=== PATIENT | male | born 1940 | race Caucasian/White ===

== ENCOUNTER 2017-03-21 22:37 | Emergency (ER) | payer OTHER ==
[2017-03-21 22:47] VITALS: BMI 30.7
--- NOTE | 2017-03-21 22:54 | PDOC ---
History of Present Illness - History of Present Illness Initial Comments: 03/22/17 00:05 Patient is a 76 year old male with significant medical hx of HTN and RA who is presenting to the ED with two weeks of persistent headache and irritability after head trauma. The patient fell out of bed and hit his head on the corner of a table on 02/23/17, sustaining a laceration to his forehead. The patient denies losing consciousness and did not see a physician for evaluation after the fall. Per family member, the patient has had persistent headache and irritability for the past two weeks. Patient localizes his headache to the front of his head where he sustained the trauma. Today the patient received an MRI, which revealed a subdural hematoma (see impression below), and was sent to the ED by PMD. Denies nausea, vomiting, abdominal pain, lightheadedness, dizziness, blurry vision, visual changes, or loss of consciousness. PMD: Barb Lopez MD Surgical Hx: Tonsillectomy Allergies: Penicillin, tetracyclines MRI/Brain MRI W/O Contrast Impression: A moderate supratentorial right-sided convexity subdural hematoma is seen with resultant mild contralateral midline displacement. This subdural hematoma is probably late subacute. Reported By: Shankar Jacob MD <Hortencia Snow - Last Filed: 03/22/17 00:05> <Angelica Salcedo - Last Filed: 03/23/17 01:38> - General Chief Complaint: Revisit,Radiology Variance Stated Complaint: REF. BY PCP Time Seen by Provider: 03/21/17 22:49 Past History <Hortencia Snow - Last Filed: 03/22/17 00:05> - Past Medical History HTN: Yes Other medical history: rheumatoid arthritis - Psycho/Social/Smoking Cessation Hx Suicidal Ideation: No Smoking History: Former smoker Have you smoked in the past 12 months: No If you are a former smoker, when did you quit?: 30 years ago Information on smoking cessation initiated: No <Angelica Salcedo - Last Filed: 03/23/17 01:38> - Past Medical History Allergies/Adverse Reactions: Allergies Allergy/AdvReac Type Severity Reaction Status Date / Time Penicillins Allergy Verified 03/21/17 22:44 Tetracyclines Allergy Verified 03/21/17 22:44 Home Medications: Ambulatory Orders Atenolol [Tenormin -] 50 mg PO DAILY 03/21/17 Felodipine [Felodipine ER] 10 mg PO DAILY 03/21/17 Folic Acid 1 mg PO DAILY 03/21/17 Losartan Potassium 100 mg PO BID 03/21/17 Review of Systems - Review of Systems Comments:: 03/22/17 00:11 CONSTITUTIONAL: Absent: fever, chills, diaphoresis, generalized weakness, malaise, loss of appetite HEENT: Absent: rhinorrhea, nasal congestion, throat pain, throat swelling, difficulty swallowing, mouth swelling, ear pain, eye pain, visual changes CARDIOVASCULAR: Absent: chest pain, syncope, palpitations, irregular heart rate, lightheadedness , peripheral edema RESPIRATORY: Absent: cough, shortness of breath, dyspnea with exertion, orthopnea, wheezing, stridor, hemoptysis GASTROINTESTINAL: Absent: abdominal pain, abdominal distension, nausea, vomiting, diarrhea, constipation, melena, hematochezia GENITOURINARY: Absent: dysuria, frequency, urgency, hesitancy, hematuria, flank pain, genital pain MUSCULOSKELETAL: Absent: myalgia, arthralgia, joint swelling SKIN: Absent: rash, itching, pallor HEMATOLOGIC/IMMUNOLOGIC: Absent: easy bleeding, easy bruising, lymphadenopathy, frequent infections ENDOCRINE: Absent: unexplained weight gain, unexplained weight loss, heat intolerance, cold intolerance NEUROLOGIC: Present: headache Absent: focal weakness or paresthesia, dizziness, unsteady gait, seizure, mental status changes, bladder or bowel incontinence. PSYCHIATRIC: Present: irritability Absent: anxiety, depression, suicidal or homicidal ideation, hallucinations <Edy,Hortencia - Last Filed: 03/22/17 00:05> *Physical Exam - Vital Signs Last Vital Signs Temp Pulse Resp BP Pulse Ox 97.1 F L 66 19 144/92 100 03/21/17 23:15 03/21/17 23:15 03/21/17 23:15 03/21/17 23:15 03/21/17 23:15 - Physical Exam Comments: 03/22/17 00:13 GENERAL: Well developed, well nourished. Awake and alert. No acute distress. HEENT: Normocephalic, atraumatic. Vision intact. PERRLA, EOMI. No conjunctival pallor. Sclera are non-icteric. Moist mucous membranes. Oropharynx is clear. NECK: Supple. Full ROM. No JVD. Carotid pulses 2+ and symmetric, without bruits. No thyromegaly. No lymphadenopathy. CARDIOVASCULAR: Regular rate and rhythm. No murmurs, rubs, or gallops. Distal pulses are 2+ and symmetric. PULMONARY: No evidence of respiratory distress. Lungs clear to auscultation bilaterally. No wheezing, rales or rhonchi. ABDOMINAL: Soft. Non-tender. Non-distended. No rebound or guarding. No organomegaly. Normoactive bowel sounds. MUSCULOSKELETAL: Normal range of motion at all joints. No bony deformities or tenderness. No CVA tenderness. EXTREMITIES: No cyanosis. No clubbing. No edema. No calf tenderness. SKIN: Warm and dry. Normal capillary refill. No rashes. No jaundice. NEUROLOGICAL: Alert, awake, appropriate. Cranial nerves 2-12 intact. Normal speech. No gross focal neurological deficits. Ambulatory. Moving all extremities. PSYCHIATRIC: Cooperative. Good eye contact. Appropriate mood and affect. <Hortencia Snow - Last Filed: 03/22/17 00:05> - Vital Signs Last Vital Signs Temp Pulse Resp BP Pulse Ox 99.9 F H 66 20 177/74 98 03/21/17 22:44 03/21/17 22:44 03/21/17 22:44 03/21/17 22:44 03/21/17 22:44 <Angelica Salcedo - Last Filed: 03/23/17 01:38> ED Treatment Course - LABORATORY CBC & Chemistry Diagram: 03/21/17 23:55 03/21/17 23:56 <Angelica Salcedo - Last Filed: 03/23/17 01:38> Medical Decision Making - Medical Decision Making 03/23/17 01:36 This 76-year-old male was sent in a 76-year-old male infant because he had a brain MRI that showed he had a subdural hematoma,subacute that showed some midline shift. The patient had actually fallen several weeks before and had not sought medical attention. The following 2 weeks He had persistent frontal headaches and his family noticed personality change with him doing quite irritable NIH stroke scale was essentially 0 at this time. I spoke to the neurosurgeon, Dr. Lor Mendoza recommended transfer to [facility]. The family wanted to go to [facility] and I spoke with Dr. Geiger who accepted the case. <Angelica Salcedo - Last Filed: 03/23/17 01:38> *DC/Admit/Observation/Transfer - Attestations Scribe Attestion: 03/22/17 00:14 Documentation prepared by Hortencia Snow, acting as medical donation professional for Angelica Salcedo MD. <Hortencia Snow - Last Filed: 03/22/17 00:05> - Transfer to Acute Care Facility Receiving Facility: [facility]. Accepting Physician:: DR HAMM Transfer comment: 03/23/17 01:35 neurosurgery admission <Angelica Salcedo - Last Filed: 03/23/17 01:38> Diagnosis at time of Disposition: Non-traumatic subdural hematoma - Discharge Dispostion Disposition: TRANSFER ACUTE CARE/OTHER HOSP - Referrals Referrals: Barb Lopez MD [Primary Care Provider] -
[2017-03-22 00:22] LABS: BASOPHIL 0.5 % (0-2.0); EOSINOPHIL 3.1 % (0-4.5); MCH 31.9 pg (25.7-33.7); MCHC 33.3 g/dl (32.0-35.9); MEAN CELL VOLUME 95.8 fl (80-96); MEAN PLT VOLUME 8.4 fl (7.5-11.1); NEUTROPHILS 69.4 % (42.8-82.8); PLATELET COUNT 293 K/MM3 (134-434); RDW 13.9 % (11.9-15.9); WHITE BLOOD COUNT 9.4 K/mm3 (4.0-10.0)
[2017-03-22 00:44] LABS: INR 1.07 (0.82-1.09); PROTHROMBIN TIME (PATIENT) 11.8 SEC (9.98-11.88)
[2017-03-22 01:32] LABS: ALBUMIN 3.1 g/dl (3.4-5.0); BILIRUBIN,TOTAL 0.2 mg/dL (0.2-1.0); CALCIUM 8.4 mg/dL (8.5-10.1); COCKROFT - GAULT 50.93; CREATININE 1.6 mg/dL (0.7-1.3); TOT PROT 6.7 g/dl (6.4-8.2)
[2017-03-22 01:41] VITALS: BP 155/79; PULSE 67; TEMP 97.7
--- NOTE | 2017-03-22 22:55 | EKG ---
Test Reason : Blood Pressure : / mmHG Vent. Rate : 069 BPM Atrial Rate : 069 BPM P-R Int : 168 ms QRS Dur : 088 ms QT Int : 398 ms P-R-T Axes : 076 -13 056 degrees QTc Int : 426 ms NORMAL SINUS RHYTHM NORMAL ECG NO PREVIOUS ECGS AVAILABLE Confirmed by HERMINIO DUKES MD ([id number]) on 03/22/2017 10:55:40 PM Referred By: Confirmed By:HERMINIO DUKES MD
== END 2017-03-22 01:42 | disposition short-term general hospital (02) ==
LOC: JER 22:37
DX: I62.00 Nontraumatic subdural hemorrhage, unspecified (principal)
CPT/HCPCS: 36415; 80053; 85025; 85610; 93005; 93010; 99285-25

== ENCOUNTER 2021-08-04 11:17 | Inpatient (IN) | payer OTHER ==
[2021-08-04 11:23] VITALS: BMI 28.1
[2021-08-04 12:48] LABS: BASO % 0.6 % (0-2.0); EOS % 2.6 % (0-4.5); HEMATOCRIT 37.9 % (35.4-49); HEMOGLOBIN 12.9 GM/dL (11.7-16.9); MCH 32.5 pg (25.7-33.7); MCHC 34.1 g/dl (32.0-35.9); MEAN CELL VOLUME 95.3 fl (80-96); MEAN PLT VOLUME 8.5 fl (7.5-11.1); MONO % 10.9 % (3.8-10.2); NEUT % 73.9 % (42.8-82.8); PLATELET COUNT 198 10^3/uL (134-434); RBC 3.98 M/mm3 (4.00-5.60); RDW 13.8 % (11.9-15.9); WHITE BLOOD COUNT 5.5 K/mm3 (4.0-10.0)
[2021-08-04 12:58] LABS: INR 0.97 (0.83-1.09)
[2021-08-04 13:04] LABS: CHLORIDE 106 mmol/L (98-107); SODIUM 137 mmol/L (136-145)
[2021-08-04 13:08] LABS: ANION GAP 5 MMOL/L (8-16); CALCIUM 8.9 mg/dL (8.5-10.1); CO2 26 mmol/L (21-32)
[2021-08-04 13:09] LABS: ALBUMIN 3.5 g/dl (3.4-5.0); BLOOD UREA NITROGEN 34.5 mg/dL (7-18); GLUCOSE,RANDOM 106 mg/dL (74-106)
[2021-08-04 13:11] LABS: SGOT/AST 24 U/L (15-37); SGPT/ALT 31 U/L (13-61)
[2021-08-04 13:12] LABS: CHOLESTEROL 180 mg/dL (50-200); CREATININE 1.8 mg/dL (0.55-1.3); TRIGLYCERIDES 91 mg/dL (0-150)
[2021-08-04 13:13] LABS: BILIRUBIN,TOTAL 0.4 mg/dL (0.2-1); LDL CHOLESTEROL (ONLY SJRH) 99 mg/dL (5-100); TOT PROT 7.4 g/dl (6.4-8.2)
[2021-08-04 13:14] LABS: ALK PHOS 90 U/L (45-117); HDL CHOLESTEROL 58 mg/dL (40-60)
[2021-08-04 13:14] LABS: EPI CELLS 0 /uL (0-25.1); HYALINE CASTS 0 /uL (0-3.1); URINE APPEARANCE CLEAR; URINE BACTERIA 17 /uL (0-1359); URINE BILIRUBIN NEGATIVE (NEGATIVE); URINE COLOR YELLOW; URINE GLUCOSE (UA) NEGATIVE (NEGATIVE); URINE KETONE NEGATIVE (NEGATIVE); URINE LEUK ESTERASE NEGATIVE (NEGATIVE); URINE NITRITE NEGATIVE (NEGATIVE); URINE PROTEIN 1+ (NEGATIVE); URINE RBC 21 /uL (0-23.9); URINE UROBILINOGEN 0.2 mg/dL (0.2-1.0); URINE WBC 2 /uL (0-25.8)
[2021-08-04] MEDS: SODIUM CHLORIDE 1,000 ML IV SCH (13:40)
[2021-08-04] MEDS ORDERED: ALBUTEROL SO4 HFA INHALER IH PRN (17:58)
[2021-08-04] MEDS ORDERED: LOSARTAN POTASSIUM 50 MG TABLET ONE (18:39)
[2021-08-04] MEDS ORDERED: ASPIRIN COATED 81 MG TABLET.EC ONE (18:39)
[2021-08-04] MEDS ORDERED: amLODIPine BESYLATE 5 MG TABLET (FP) ONE (18:39)
[2021-08-04] MEDS: ASPIRIN COATED 81 MG TABLET.EC PO SCH (18:46)
[2021-08-04] MEDS: amLODIPine BESYLATE 10 MG TABLET (FP) PO SCH (18:46)
[2021-08-04] MEDS: LOSARTAN POTASSIUM 50 MG TABLET PO SCH (18:46)
[2021-08-04] MEDS: TAMSULOSIN HCL 0.4 MG CAP PO SCH (19:08)
[2021-08-04] MEDS: ATENOLOL 50 MG TABLET (FP) PO SCH (21:55)
[2021-08-04] MEDS: MONTELUKAST NA 10 MG TABLET PO SCH (22:02)
[2021-08-05] MEDS ORDERED: TAMSULOSIN HCL 0.4 MG CAP ONE (07:53)
[2021-08-05] MEDS: TAMSULOSIN HCL 0.4 MG CAP PO SCH (07:59)
[2021-08-05 08:22] LABS: BASO % 0.8 % (0-2.0); EOS % 3.8 % (0-4.5); HEMATOCRIT 38.3 % (35.4-49); HEMOGLOBIN 12.9 GM/dL (11.7-16.9); LYMPH % 20.8 % (8-40); MCH 32.2 pg (25.7-33.7); MCHC 33.7 g/dl (32.0-35.9); MEAN CELL VOLUME 95.7 fl (80-96); MONO % 13.9 % (3.8-10.2); NEUT % 60.7 % (42.8-82.8); PLATELET COUNT 195 10^3/uL (134-434); WHITE BLOOD COUNT 5.2 K/mm3 (4.0-10.0)
[2021-08-05 08:29] LABS: BLOOD UREA NITROGEN 32.6 mg/dL (7-18); CALCIUM 8.5 mg/dL (8.5-10.1)
[2021-08-05 08:32] LABS: CREATININE 1.4 mg/dL (0.55-1.3)
[2021-08-05] MEDS ORDERED: LOSARTAN POTASSIUM 50 MG TABLET ONE (09:42)
[2021-08-05] MEDS ORDERED: ATENOLOL 25 MG TABLET (FP) ONE (09:42)
[2021-08-05] MEDS ORDERED: ASPIRIN COATED 81 MG TABLET.EC ONE (09:42)
[2021-08-05] MEDS ORDERED: amLODIPine BESYLATE 5 MG TABLET (FP) ONE (09:42)
[2021-08-05] MEDS: amLODIPine BESYLATE 10 MG TABLET (FP) PO SCH (10:04)
[2021-08-05] MEDS: ASPIRIN COATED 81 MG TABLET.EC PO SCH (10:04)
[2021-08-05] MEDS: LOSARTAN POTASSIUM 50 MG TABLET PO SCH (10:04)
[2021-08-05] MEDS: ATENOLOL 50 MG TABLET (FP) PO SCH ×3 (10:04→22:30)
[2021-08-05] MEDS ORDERED: ZOLPIDEM TARTRATE 5 MG TABLET PO PRN (18:26)
[2021-08-05] MEDS: MONTELUKAST NA 10 MG TABLET PO SCH (21:12)
[2021-08-05] MEDS: SODIUM CHLORIDE 1,000 ML IV SCH (22:30)
[2021-08-06 08:09] LABS: BASO % 0.5 % (0-2.0); EOS % 0.5 % (0-4.5); HEMATOCRIT 36.4 % (35.4-49); HEMOGLOBIN 12.5 GM/dL (11.7-16.9); LYMPH % 6.2 % (8-40); MCH 32.6 pg (25.7-33.7); MCHC 34.4 g/dl (32.0-35.9); MEAN CELL VOLUME 94.6 fl (80-96); MEAN PLT VOLUME 8.7 fl (7.5-11.1); MONO % 10.2 % (3.8-10.2); NEUT % 82.6 % (42.8-82.8); PLATELET COUNT 198 10^3/uL (134-434); RBC 3.85 M/mm3 (4.00-5.60); RDW 13.9 % (11.9-15.9); WHITE BLOOD COUNT 8.4 K/mm3 (4.0-10.0)
[2021-08-06 08:24] LABS: BLOOD UREA NITROGEN 27.6 mg/dL (7-18)
[2021-08-06 08:27] LABS: CREATININE 1.6 mg/dL (0.55-1.3)
[2021-08-06 08:36] LABS: CALCIUM 8.8 mg/dL (8.5-10.1)
[2021-08-06] MEDS: TAMSULOSIN HCL 0.4 MG CAP PO SCH (08:57)
[2021-08-06] MEDS: ATENOLOL 50 MG TABLET (FP) PO SCH (09:00)
[2021-08-06] MEDS: amLODIPine BESYLATE 10 MG TABLET (FP) PO SCH (09:00)
[2021-08-06] MEDS: LOSARTAN POTASSIUM 50 MG TABLET PO SCH (09:01)
[2021-08-06] MEDS: ASPIRIN COATED 81 MG TABLET.EC PO SCH (09:01)
[2021-08-06] MEDS: SODIUM CHLORIDE 1,000 ML IV SCH (13:34)
[2021-08-06 18:18] VITALS: BP 143/59; PULSE 55; TEMP 98.6
== END 2021-08-06 18:36 | disposition home or self-care (01) | DRG 69 ==
LOC: JER 11:17 → UNDOADMIN 12:59 → JERBED 12:59 → J4S 08-05 17:27
PROVIDERS: ADMIT Internal Medicine; ATTEND Internal Medicine
DX: G45.9 Transient cerebral ischemic attack, unspecified (principal); I10 Essential (primary) hypertension; N40.0 Benign prostatic hyperplasia without lower urinary tract symptoms; E78.5 Hyperlipidemia, unspecified; M06.9 Rheumatoid arthritis, unspecified; I25.10 Atherosclerotic heart disease of native coronary artery without angina pectoris; J45.909 Unspecified asthma, uncomplicated; R55 Syncope and collapse; I12.9 Hypertensive chronic kidney disease with stage 1 through stage 4 chronic kidney disease, or unspecified chronic kidney disease; N18.9 Chronic kidney disease, unspecified; W17.89XA Other fall from one level to another, initial encounter; Y92.098 Other place in other non-institutional residence as the place of occurrence of the external cause; Z86.711 Personal history of pulmonary embolism
CPT/HCPCS: 36415; 70450-TC; 70551-TC; 80048; 80053; 80061; 81003; 82550; 83036; 84484; 85025; 85610; 85730; 86850; 86900; 86901; 93005; 93010; 93306-TC; 99285-25; C9803; U0003; U0005

== ENCOUNTER 2022-11-09 17:37 | Inpatient (IN) | payer OTHER ==
[2022-11-09 19:07] LABS: HEMATOCRIT 34.5 % (35.4-49); HEMOGLOBIN 11.8 G/dL (11.7-16.9); MCH 30.8 pg (25.7-33.7); MCHC 34.1 g/dl (32.0-35.9); MEAN CELL VOLUME 90.2 fl (80-96); MEAN PLT VOLUME 7.9 fl (7.5-11.1); PLATELET COUNT 414.8 10^3/uL (134-434); RBC 3.82 10^6/uL (4.00-5.60); RDW 14.4 % (11.9-15.9); WHITE BLOOD COUNT 16.3 10^3/uL (4.0-10.8)
[2022-11-09 19:19] LABS: ALBUMIN 2.6 g/dl (3.4-5.0); BILIRUBIN,TOTAL 0.6 mg/dl (0.2-1); CALCIUM 8.5 mg/dl (8.5-10); CREATININE 3.8 mg/dl (0.55-1.3); TOT PROT 6.3 g/dl (6.4-8.2)
[2022-11-09 19:41] LABS: PLATELET ESTIMATE SLT INCREASE
[2022-11-09 19:44] LABS: EPITHELIAL CELLS FEW /hpf
[2022-11-09] MEDS ORDERED: cefTRIAXone SODIUM 1 GM VIAL ONE (19:58)
[2022-11-09] MEDS ORDERED: PHENAZOPYRIDINE HCL 100 MG TABLET (FP) PO ONE (19:59)
[2022-11-09] MEDS ORDERED: CIPROFLOXACIN 400 MG/D5W 400 MG/200 ML IVPB IVPB ONE ×2 (20:00→20:16)
[2022-11-09] MEDS ORDERED: PHENAZOPYRIDINE HCL 100 MG TABLET (FP) ONE (20:12)
[2022-11-09] MEDS ORDERED: HYOSCYAMINE SULFATE 0.125 MG *ODT PO ONE (21:18)
[2022-11-09] MEDS ORDERED: ACETAMINOPHEN 500 MG TABLET (FP) PO ONE (21:19)
[2022-11-09] MEDS ORDERED: ACETAMINOPHEN 1000 MG/100 ML BAG IVPB ONE (21:19)
[2022-11-10] MEDS ORDERED: ZOLPIDEM TARTRATE 5 MG TABLET PO ONE (01:49)
[2022-11-10 04:39] VITALS: BMI 26.9
[2022-11-10] MEDS ORDERED: PHENAZOPYRIDINE HCL 100 MG TABLET (FP) PO PRN (06:24)
[2022-11-10 08:40] LABS: ALBUMIN 2.3 g/dl (3.4-5.0); BILIRUBIN,TOTAL 0.7 mg/dl (0.2-1); CALCIUM 8.5 mg/dl (8.5-10); CREATININE 3.2 mg/dl (0.55-1.3); TOT PROT 5.3 g/dl (6.4-8.2)
[2022-11-10] MEDS: ATENOLOL 50 MG TABLET (FP) PO SCH (09:20)
[2022-11-10] MEDS: FOLIC ACID 1 MG TABLET (FP) PO SCH (09:20)
[2022-11-10 09:23] LABS: BASO % 0.5 % (0-2.0); EOS % 2.8 % (0-4.5); HEMATOCRIT 29.8 % (35.4-49); HEMOGLOBIN 9.7 GM/dL (11.7-16.9); LYMPH % 11.6 % (8-40); MCH 29.6 pg (25.7-33.7); MCHC 32.4 g/dl (32.0-35.9); MEAN CELL VOLUME 91.4 fl (80-96); MEAN PLT VOLUME 8.1 fl (7.5-11.1); MONO % 10.3 % (3.8-10.2); NEUT % 74.8 % (42.8-82.8); PLATELET COUNT 343 10^3/uL (134-434); RBC 3.26 M/mm3 (4.00-5.60); WHITE BLOOD COUNT 12.6 K/mm3 (4.0-10.0)
[2022-11-10] MEDS: TAMSULOSIN HCL 0.4 MG CAP PO SCH (12:20)
[2022-11-10] MEDS: LACTATED RINGERS SOLUTION 1,000 ML/1,000 ML INFUS.BAG IV SCH (12:20)
[2022-11-10] MEDS: BUDESONIDE/FORMETEROL FUMARATE 80/4.5 mcg INHALER IH SCH ×2 (12:24→21:57)
[2022-11-10] MEDS ORDERED: CIPROFLOXACIN 400 MG/D5W 400 MG/200 ML IVPB IVPB ONE (12:39)
[2022-11-10 15:04] LABS: CREATININE, URINE RANDOM 117.9 mg/dL
[2022-11-10] MEDS: ROSUVASTATIN CA 5 MG TABLET PO SCH (21:55)
[2022-11-10] MEDS: MONTELUKAST NA 10 MG TABLET PO SCH (21:55)
[2022-11-10] MEDS: ZOLPIDEM TARTRATE 5 MG TABLET PO PRN (22:35)
[2022-11-11] MEDS: TAMSULOSIN HCL 0.4 MG CAP PO SCH (07:40)
[2022-11-11 08:19] LABS: HEMATOCRIT 29.3 % (35.4-49); MCH 31.1 pg (25.7-33.7); MCHC 34.1 g/dl (32.0-35.9); MEAN CELL VOLUME 91.2 fl (80-96); MEAN PLT VOLUME 7.8 fl (7.5-11.1); PLATELET COUNT 330.9 10^3/uL (134-434); RBC 3.21 10^6/uL (4.00-5.60); RDW 14.1 % (11.9-15.9); WHITE BLOOD COUNT 12.1 10^3/uL (4.0-10.8)
[2022-11-11 08:24] LABS: ALBUMIN 2.3 g/dl (3.4-5.0); BILIRUBIN,TOTAL 0.8 mg/dl (0.2-1); CALCIUM 8.5 mg/dl (8.5-10); CREATININE 2.7 mg/dl (0.55-1.3); MAGNESIUM 1.8 mg/dL (1.8-2.4); PHOSPHOROUS 3.3 mg/dl (2.5-4.9); TOT PROT 5.6 g/dl (6.4-8.2); URIC ACID 9.3 mg/dl (2.6-7.2)
[2022-11-11] MEDS: HEPARIN NA (PORCINE) 5,000 UNITS/ML 1ML VIAL SQ SCH ×2 (09:29→21:21)
[2022-11-11] MEDS: FOLIC ACID 1 MG TABLET (FP) PO SCH (09:29)
[2022-11-11] MEDS: ATENOLOL 50 MG TABLET (FP) PO SCH (09:29)
[2022-11-11] MEDS: BUDESONIDE/FORMETEROL FUMARATE 80/4.5 mcg INHALER IH SCH ×2 (09:30→21:22)
[2022-11-11] MEDS: LACTATED RINGERS SOLUTION 1,000 ML/1,000 ML INFUS.BAG IV SCH (11:55)
[2022-11-11] MEDS: ROSUVASTATIN CA 5 MG TABLET PO SCH (21:21)
[2022-11-11] MEDS: MONTELUKAST NA 10 MG TABLET PO SCH (21:21)
[2022-11-11] MEDS: ZOLPIDEM TARTRATE 5 MG TABLET PO PRN (21:21)
[2022-11-12 06:26] VITALS: BP 146/55; RESP 18
[2022-11-12] MEDS: TAMSULOSIN HCL 0.4 MG CAP PO SCH (07:39)
[2022-11-12 09:18] LABS: HEMATOCRIT 27.5 % (35.4-49); HEMOGLOBIN 9.5 G/dL (11.7-16.9); MCH 31.5 pg (25.7-33.7); MCHC 34.4 g/dl (32.0-35.9); MEAN CELL VOLUME 91.8 fl (80-96); MEAN PLT VOLUME 7.6 fl (7.5-11.1); PLATELET COUNT 284.3 10^3/uL (134-434); RDW 13.7 % (11.9-15.9); WHITE BLOOD COUNT 10.3 10^3/uL (4.0-10.8)
[2022-11-12 09:45] VITALS: PULSE 66; TEMP 98.4
[2022-11-12] MEDS: FOLIC ACID 1 MG TABLET (FP) PO SCH (09:51)
[2022-11-12] MEDS: ATENOLOL 50 MG TABLET (FP) PO SCH (09:51)
[2022-11-12] MEDS: HEPARIN NA (PORCINE) 5,000 UNITS/ML 1ML VIAL SQ SCH (09:52)
[2022-11-12] MEDS: BUDESONIDE/FORMETEROL FUMARATE 80/4.5 mcg INHALER IH SCH (09:53)
== END 2022-11-12 11:25 | disposition home or self-care (01) | DRG 699 ==
LOC: FER 17:37 → FM/S 21:09
PROVIDERS: ADMIT Internal Medicine; ATTEND Internal Medicine
DX: N13.9 Obstructive and reflux uropathy, unspecified (principal); E87.20 Acidosis, unspecified; N13.6 Pyonephrosis; N17.9 Acute kidney failure, unspecified; N32.3 Diverticulum of bladder
CPT/HCPCS: 0241U-QW; 36415; 74176-TC; 80048; 80053; 81003; 81015; 82570; 83735; 84100; 84156; 84300; 84540; 84550; 85025; 85027; 87077; 87086; 97116-GP; 97162-GP; 99285-25; J1644

== ENCOUNTER 2022-12-20 04:11 | Day surgery (SDC) | payer OTHER ==
[2022-12-16 15:18] VITALS: BMI 27.8
[2022-12-20] MEDS ORDERED: ACETAMINOPHEN 1000 MG/100 ML BAG IVPB ONE (08:46)
[2022-12-20] MEDS ORDERED: DEXTROSE 5%-0.45% SALINE 1,000 ML IV SCH (09:00)
[2022-12-20] MEDS ORDERED: MIDAZOLAM HCL 2 MG/2 ML SINGLE DOSE VIAL ONE (09:03)
[2022-12-20] MEDS ORDERED: DEXAMETHASONE SOD PHOSPHATE 4 MG/1 ML VIAL ONE (09:28)
[2022-12-20] MEDS ORDERED: LIDOCAINE HCL/PF 2% SDV 5ML VIAL ONE (09:28)
[2022-12-20] MEDS ORDERED: ONDANSETRON 4 MG/2 ML VIAL ONE (09:28)
[2022-12-20] MEDS ORDERED: PROPOFOL 20 ML ONE (09:31)
[2022-12-20] MEDS ORDERED: CLINDAMYCIN 600 MG PREMIX BAG IVPB ONE (09:38)
[2022-12-20] MEDS ORDERED: CLINDAMYCIN 600MG PREMIX IVPB 600 MG/50 ML BAG IVPB ONE (09:41)
[2022-12-20] MEDS ORDERED: ACETAMINOPHEN INJECTION 100 ML IVPB ONE (10:03)
[2022-12-20] MEDS ORDERED: ONDANSETRON 4 MG/2 ML VIAL IVPUSH PRN (10:31)
[2022-12-20] MEDS ORDERED: oxyCODONE HCL 5 MG TABLET PO PRN (10:31)
[2022-12-20] MEDS ORDERED: LACTATED RINGERS SOLUTION 1,000 ML IV SCH (10:45)
[2022-12-20 11:28] VITALS: RESP 20
[2022-12-20 12:58] VITALS: BP 120/61; PULSE 56; TEMP 97.7
== END 2022-12-20 12:15 | disposition home or self-care (01) ==
LOC: JASU-SURG 04:11
PROVIDERS: ATTEND Urology
PROC: 0VT08ZZ Resection of Prostate, Via Natural or Artificial Opening Endoscopic (ICD-10-PCS; principal; 2022-12-20 08:30)
DX: N40.1 Benign prostatic hyperplasia with lower urinary tract symptoms (principal); R33.8 Other retention of urine
CPT/HCPCS: 94760

== ENCOUNTER 2024-07-11 00:14 | Inpatient (IN) | payer OTHER ==
[2024-07-11 00:19] VITALS: BMI 27.2
[2024-07-11] MEDS: ALBUTEROL SO4 2.5/IPRATROPIUM 0.5 INH SOL 3 ML VIAL.NEB. NEB SCH (00:20)
[2024-07-11] MEDS ORDERED: ALBUTEROL SO4 2.5/IPRATROPIUM 0.5 INH SOL 3 ML VIAL.NEB. NEB ONE (00:22)
[2024-07-11] MEDS ORDERED: methylPREDNISolone NA SUCC 125 MG/2 ML VIAL ONE (00:26)
[2024-07-11] MEDS ORDERED: MAGNESIUM SULFATE IN WATER 2 GM/50 ML IVPB IVPB ONE (00:27)
[2024-07-11 00:50] LABS: VENOUS BASE EXCESS -4.7 mmol/L (-2-2); VENOUS O2 SATURATION 76.1 % (70-80); VENOUS PCO2 43.5 mmHg (38-52); VENOUS PH 7.31 (7.310-7.410)
[2024-07-11] MEDS: methylPREDNISolone NA SUCC 125 MG/2 ML VIAL IVPUSH ONE (00:51)
[2024-07-11 00:52] LABS: BASO % 0.4 % (0-2.0); EOS % 2.3 % (0-4.5); HEMATOCRIT 31.7 % (35.4-49); HEMOGLOBIN 10.4 GM/dL (11.7-16.9); LYMPH % 9.4 % (8-40); MCHC 32.8 g/dl (32.0-35.9); MEAN CELL VOLUME 91.2 fl (80-96); MEAN PLT VOLUME 7.9 fl (7.5-11.1); MONO % 8.5 % (3.8-10.2); NEUT % 79.4 % (42.8-82.8); PLATELET COUNT 315 10^3/uL (134-434); RBC 3.47 M/mm3 (4.00-5.60); RDW 14.4 % (11.9-15.9); WHITE BLOOD COUNT 12.6 K/mm3 (4.0-10.0)
[2024-07-11] MEDS: MAGNESIUM SULF 50% (8.12 MEQ/2 ML-1 GM VIAL) IVPB ONE (01:11)
[2024-07-11 01:24] LABS: POTASSIUM 5.3 mmol/L (3.5-5.1)
[2024-07-11 01:26] LABS: CALCIUM 8.6 mg/dL (8.5-10.1)
[2024-07-11 01:28] LABS: ALBUMIN 2.9 g/dl (3.4-5.0); BLOOD UREA NITROGEN 37.8 mg/dL (7-18)
[2024-07-11 01:30] LABS: CREATININE 2.5 mg/dL (0.55-1.3)
[2024-07-11 01:32] LABS: BILIRUBIN,TOTAL 0.4 mg/dL (0.2-1); TOT PROT 6.9 g/dl (6.4-8.2)
[2024-07-11] MEDS ORDERED: AZITHROMYCIN IVPB 500 MG/250 ML BAG IVPB ONE (02:14)
[2024-07-11] MEDS: AZITHROMYCIN IVPB 500 MG in DEXTROSE 5%-WATER - 250 ML IVPB ONE (02:22)
[2024-07-11] MEDS ORDERED: DOCUSATE SODIUM 100 MG CAPSULE (FP) PO PRN (03:15)
[2024-07-11] MEDS ORDERED: ACETAMINOPHEN 325 MG TABLET (FP) PO PRN (03:15)
[2024-07-11] MEDS: SODIUM ZIRCONIUM CYCLOSILICATE (LOKELMA) 5 GM PACKET PO ONE (05:49)
[2024-07-11 06:54] LABS: PHOSPHOROUS 3.4 mg/dL (2.5-4.9)
[2024-07-11 06:58] LABS: N-TERMINAL BNP 6531.4 pg/ml (5-450)
[2024-07-11] MEDS ORDERED: PATIENT'S OWN MEDICATION (NON-FORMULARY) (Losartan Potassium [Losartan Potassium] 100 MG T PO SCH (10:00)
[2024-07-11] MEDS ORDERED: MONTELUKAST NA 10 MG TABLET PO SCH (10:00)
[2024-07-11] MEDS ORDERED: amLODIPine BESYLATE 10 MG TABLET (FP) ONE (10:12)
[2024-07-11] MEDS: LOSARTAN POTASSIUM 50 MG TABLET PO SCH (10:33)
[2024-07-11] MEDS: ASPIRIN COATED 81 MG TABLET.EC PO SCH (10:34)
[2024-07-11] MEDS: amLODIPine BESYLATE 10 MG TABLET (FP) PO SCH (10:34)
[2024-07-11] MEDS: methylPREDNISolone NA SUCC 40 MG/1 ML VIAL IVPUSH SCH (10:34)
[2024-07-11] MEDS: FLUTICASONE/SALMETEROL (WIXELA) 100 MCG/50 MCG DISKUS IH SCH (11:27)
[2024-07-11] MEDS: ATENOLOL 50 MG TABLET (FP) PO ONE (11:28)
[2024-07-11] MEDS ORDERED: FUROSEMIDE 40 MG/4 ML INJECTABLE VIAL ONE (13:18)
[2024-07-11] MEDS: FUROSEMIDE 40 MG/4 ML INJECTABLE VIAL IVPUSH ONE (13:26)
[2024-07-11] MEDS: ROSUVASTATIN CA 5 MG TABLET PO SCH (21:38)
[2024-07-11] MEDS: MONTELUKAST NA 10 MG TABLET PO SCH (21:38)
[2024-07-12 09:36] LABS: HEMATOCRIT 31.9 % (35.4-49); HEMOGLOBIN 10.3 GM/dL (11.7-16.9); MCH 29.8 pg (25.7-33.7); MCHC 32.3 g/dl (32.0-35.9); MEAN CELL VOLUME 92.3 fl (80-96); MEAN PLT VOLUME 8.2 fl (7.5-11.1); PLATELET COUNT 320 10^3/uL (134-434); RBC 3.45 M/mm3 (4.00-5.60); RDW 14.5 % (11.9-15.9); WHITE BLOOD COUNT 16.3 K/mm3 (4.0-10.0)
[2024-07-12 09:53] LABS: POTASSIUM 4.8 mmol/L (3.5-5.1)
[2024-07-12] MEDS: AZITHROMYCIN IVPB 500 MG/250 ML BAG IVPB SCH (09:55)
[2024-07-12 09:58] LABS: ALBUMIN 2.7 g/dl (3.4-5.0); BLOOD UREA NITROGEN 47.5 mg/dL (7-18); CALCIUM 8.8 mg/dL (8.5-10.1)
[2024-07-12 10:02] LABS: CREATININE 2.3 mg/dL (0.55-1.3)
[2024-07-12 10:03] LABS: TOT PROT 6.6 g/dl (6.4-8.2)
[2024-07-12 10:33] LABS: BILIRUBIN,TOTAL 0.4 mg/dL (0.2-1)
[2024-07-12 11:15] LABS: ANISOCYTOSIS 0; HELMET CELLS 0; HOWELL-JOLLY BODIES 0; MACROCYTOSIS 0; OVALOCYTE 0; ROULEAU 0; SICKELED CELLS 0; TARGET CELLS 0; TEAR DROP CELLS 0; TOXIC GRANULATION 0
[2024-07-12] MEDS: FUROSEMIDE 40 MG/4 ML INJECTABLE VIAL IVPUSH ONE (11:28)
[2024-07-13 09:06] LABS: POTASSIUM 4.7 mmol/L (3.5-5.1)
[2024-07-13 09:08] LABS: CALCIUM 8.6 mg/dL (8.5-10.1)
[2024-07-13 09:12] LABS: CREATININE 2.4 mg/dL (0.55-1.3)
[2024-07-13] MEDS: DUTASTERIDE 0.5 MG CAP (FP) PO SCH (10:34)
[2024-07-13] MEDS: ATENOLOL 50 MG TABLET (FP) PO SCH (10:34)
[2024-07-13] MEDS: FUROSEMIDE 40 MG/4 ML INJECTABLE VIAL IVPUSH SCH (10:34)
[2024-07-13] MEDS: TAMSULOSIN HCL 0.4 MG CAP PO SCH (10:34)
[2024-07-13] MEDS ORDERED: ALBUTEROL SO4 2.5/IPRATROPIUM 0.5 INH SOL 3 ML VIAL.NEB. NEB PRN (11:23)
[2024-07-13] MEDS: ENOXAPARIN NA (PORCINE) 30 MG/0.3 ML DISP.SYRIN SQ SCH (12:14)
[2024-07-13] MEDS: methylPREDNISolone NA SUCC 40 MG/1 ML VIAL IVPUSH SCH (21:25)
[2024-07-14 09:36] LABS: HEMATOCRIT 30.5 % (35.4-49); HEMOGLOBIN 9.9 GM/dL (11.7-16.9); MCH 29.8 pg (25.7-33.7); MCHC 32.3 g/dl (32.0-35.9); MEAN CELL VOLUME 92.3 fl (80-96); PLATELET COUNT 336 10^3/uL (134-434); RBC 3.31 M/mm3 (4.00-5.60); WHITE BLOOD COUNT 12.3 K/mm3 (4.0-10.0)
[2024-07-14 09:57] LABS: POTASSIUM 4.9 mmol/L (3.5-5.1)
[2024-07-14 10:00] LABS: CALCIUM 8.3 mg/dL (8.5-10.1)
[2024-07-14 10:01] LABS: ALBUMIN 2.6 g/dl (3.4-5.0); BLOOD UREA NITROGEN 79.8 mg/dL (7-18)
[2024-07-14 10:04] LABS: CREATININE 2.7 mg/dL (0.55-1.3)
[2024-07-14 10:06] LABS: BILIRUBIN,TOTAL 0.5 mg/dL (0.2-1)
[2024-07-14 11:05] LABS: ANISOCYTOSIS 0; MACROCYTOSIS 0
[2024-07-15] MEDS: methylPREDNISolone NA SUCC 40 MG/1 ML VIAL IVPUSH SCH (09:47)
[2024-07-16] MEDS: FUROSEMIDE 40 MG TABLET (FP) PO SCH (09:18)
[2024-07-16] MEDS: APIXABAN 2.5 MG TABLET PO SCH (12:28)
[2024-07-16 13:23] LABS: POTASSIUM 4.5 mmol/L (3.5-5.1)
[2024-07-16 13:25] LABS: CALCIUM 8.4 mg/dL (8.5-10.1)
[2024-07-16 13:26] LABS: ALBUMIN 2.8 g/dl (3.4-5.0); BLOOD UREA NITROGEN 79.5 mg/dL (7-18)
[2024-07-16 13:29] LABS: CREATININE 2.5 mg/dL (0.55-1.3)
[2024-07-16 13:30] LABS: BILIRUBIN,TOTAL 0.4 mg/dL (0.2-1); TOT PROT 6.2 g/dl (6.4-8.2)
[2024-07-16] MEDS ORDERED: ALBUTEROL SO4 2.5/IPRATROPIUM 0.5 INH SOL 3 ML VIAL.NEB. NEB PRN (18:14)
[2024-07-16] MEDS ORDERED: DOCUSATE SODIUM 100 MG CAPSULE (FP) PO PRN (18:14)
[2024-07-16] MEDS ORDERED: ACETAMINOPHEN 325 MG TABLET (FP) PO PRN (18:14)
[2024-07-16] MEDS: MONTELUKAST NA 10 MG TABLET PO SCH (22:04)
[2024-07-16] MEDS: ATENOLOL 50 MG TABLET (FP) PO SCH (22:04)
[2024-07-16] MEDS: ROSUVASTATIN CA 5 MG TABLET PO SCH (22:05)
[2024-07-16] MEDS: FLUTICASONE/SALMETEROL (WIXELA) 100 MCG/50 MCG DISKUS IH SCH (22:15)
[2024-07-17 08:03] LABS: HEMOGLOBIN 10.8 GM/dL (11.7-16.9); MCH 30.1 pg (25.7-33.7); MCHC 32.7 g/dl (32.0-35.9); MEAN CELL VOLUME 92.2 fl (80-96); MEAN PLT VOLUME 8.4 fl (7.5-11.1); PLATELET COUNT 337 10^3/uL (134-434); RBC 3.58 M/mm3 (4.00-5.60); RDW 13.8 % (11.9-15.9); WHITE BLOOD COUNT 14.7 K/mm3 (4.0-10.0)
[2024-07-17] MEDS: AZITHROMYCIN 500 MG TABLET PO SCH (09:12)
[2024-07-17] MEDS: FUROSEMIDE 40 MG TABLET (FP) PO SCH (09:13)
[2024-07-17] MEDS: amLODIPine BESYLATE 5 MG TABLET (FP) PO SCH (09:13)
[2024-07-17] MEDS: LOSARTAN POTASSIUM 50 MG TABLET PO SCH (09:13)
[2024-07-17] MEDS: DUTASTERIDE 0.5 MG CAP (FP) PO SCH (09:14)
[2024-07-17] MEDS ORDERED: AZITHROMYCIN IVPB 500 MG/250 ML BAG IVPB SCH (10:00)
[2024-07-17 10:02] LABS: ANISOCYTOSIS 0; HELMET CELLS 0; HOWELL-JOLLY BODIES 0; MACROCYTOSIS 0; OVALOCYTE 0; ROULEAU 0; SICKELED CELLS 0; TARGET CELLS 0; TEAR DROP CELLS 0; TOXIC GRANULATION 0
[2024-07-18 08:41] VITALS: BP 119/83; PULSE 98; RESP 18; TEMP 97.3
[2024-07-18] MEDS: metoPROLOL SUCCINATE 25 MG TAB.SR.24H (FP) PO SCH (10:03)
== END 2024-07-18 14:20 | disposition home or self-care (01) | DRG 291 ==
LOC: JER 00:14 → JERBED 02:14 → OBSVTOIN 14:43 → J8W 16:04 → J6S 07-12 20:05 → J4W 07-16 17:28
PROVIDERS: ADMIT Internal Medicine; ATTEND Internal Medicine
DX: I13.0 Hypertensive heart and chronic kidney disease with heart failure and stage 1 through stage 4 chronic kidney disease, or unspecified chronic kidney disease (principal); I50.33 Acute on chronic diastolic (congestive) heart failure; J44.1 Chronic obstructive pulmonary disease with (acute) exacerbation; N40.0 Benign prostatic hyperplasia without lower urinary tract symptoms; I25.10 Atherosclerotic heart disease of native coronary artery without angina pectoris; M06.9 Rheumatoid arthritis, unspecified; E87.5 Hyperkalemia; N18.9 Chronic kidney disease, unspecified; I48.91 Unspecified atrial fibrillation
CPT/HCPCS: 0241U-QW; 36415; 71045-TC-FY; 80048; 80053; 82803; 83735; 83880; 84100; 84439; 84443; 84481; 85025; 93005; 93010; 93306-TC; 94761; 99285-25; G0378

== ENCOUNTER 2024-12-07 08:28 | Inpatient (IN) | payer OTHER ==
[2024-12-07] MEDS ORDERED: ALBUTEROL SO4 2.5/IPRATROPIUM 0.5 INH SOL 3 ML VIAL.NEB. NEB SCH (08:45)
[2024-12-07] MEDS: ALBUTEROL SO4 2.5/IPRATROPIUM 0.5 INH SOL 3 ML VIAL.NEB. NEB SCH ×2 (08:48→12:23)
[2024-12-07] MEDS ORDERED: methylPREDNISolone NA SUCC 125 MG/2 ML VIAL ONE (08:57)
[2024-12-07] MEDS: methylPREDNISolone NA SUCC 125 MG/2 ML VIAL IVPB ONE (09:24)
[2024-12-07 09:35] LABS: VENOUS BASE EXCESS 4.4 mmol/L (-2-2); VENOUS O2 SATURATION 33.6 % (70-80); VENOUS PCO2 59.3 mmHg (38-52); VENOUS PH 7.34 (7.310-7.410)
[2024-12-07 09:38] LABS: BASO % 0.5 % (0-2.0); EOS % 0.6 % (0-4.5); HEMATOCRIT 30.7 % (35.4-49); HEMOGLOBIN 9.3 GM/dL (11.7-16.9); LYMPH % 7.5 % (8-40); MCH 25.4 pg (25.7-33.7); MCHC 30.4 g/dl (32.0-35.9); MEAN CELL VOLUME 83.3 fl (80-96); MEAN PLT VOLUME 8.3 fl (7.5-11.1); MONO % 5.9 % (3.8-10.2); NEUT % 85.5 % (42.8-82.8); PLATELET COUNT 230 10^3/uL (134-434); RBC 3.68 M/mm3 (4.00-5.60); RDW 20.5 % (11.9-15.9); WHITE BLOOD COUNT 7.7 K/mm3 (4.0-10.0)
[2024-12-07 10:11] LABS: CHLORIDE 103 mmol/L (98-107); SODIUM 139 mmol/L (136-145)
[2024-12-07 10:13] LABS: ALBUMIN 2.3 g/dl (3.4-5.0); CALCIUM 9.3 mg/dL (8.5-10.1); CO2 33 mmol/L (21-32)
[2024-12-07 10:14] LABS: GLUCOSE,RANDOM 208 mg/dL (74-106)
[2024-12-07 10:16] LABS: SGPT/ALT 150 U/L (13-61)
[2024-12-07 10:17] LABS: CREATININE 2.2 mg/dL (0.55-1.3); SGOT/AST 112 U/L (15-37)
[2024-12-07 10:18] LABS: BILIRUBIN,TOTAL 0.9 mg/dL (0.2-1)
[2024-12-07 10:19] LABS: TOT PROT 6.2 g/dl (6.4-8.2)
[2024-12-07 10:20] LABS: N-TERMINAL BNP 23307.1 pg/ml (5-450)
[2024-12-07 10:21] LABS: ALK PHOS 169 U/L (45-117)
[2024-12-07 10:22] LABS: ANION GAP 3 mmol/L (4-13); POTASSIUM 6.8 mmol/L (3.5-5.1)
[2024-12-07] MEDS ORDERED: ALBUTEROL SO4 2.5/IPRATROPIUM 0.5 INH SOL 3 ML VIAL.NEB. NEB PRN (11:41)
[2024-12-07] MEDS ORDERED: DOCUSATE SODIUM 100 MG CAPSULE (FP) PO PRN (11:41)
[2024-12-07] MEDS ORDERED: CEFTRIAXONE 1 G/50 ML PREMIX 50 ML IVPB ONE (12:13)
[2024-12-07] MEDS ORDERED: ALBUTEROL SO4 2.5/IPRATROPIUM 0.5 INH SOL 3 ML VIAL.NEB. NEB ONE (12:13)
[2024-12-07] MEDS: CEFTRIAXONE 1,000 MG in DEXTROSE 5%-WATER - 50 ML IVPB ONE (12:23)
[2024-12-07] MEDS ORDERED: VANCOMYCIN 1 GM PREMIX (F) 1 GM/200 ML BAG ONE (13:05)
[2024-12-07] MEDS: VANCOMYCIN 1 GM PREMIX (F) 1 GM/200 ML BAG IVPB ONE (13:17)
[2024-12-07 15:07] LABS: CALCIUM 9.6 mg/dL (8.5-10.1); POTASSIUM 4.3 mmol/L (3.5-5.1)
[2024-12-07 15:08] LABS: BLOOD UREA NITROGEN 73.7 mg/dL (7-18)
[2024-12-07 15:12] LABS: CREATININE 2.1 mg/dL (0.55-1.3)
[2024-12-07] MEDS ORDERED: FUROSEMIDE 40 MG/4 ML INJECTABLE VIAL ONE (15:15)
[2024-12-07] MEDS: FUROSEMIDE 40 MG/4 ML INJECTABLE VIAL IVPUSH ONE (15:27)
[2024-12-07] MEDS: APIXABAN 2.5 MG TABLET PO SCH (21:54)
[2024-12-07] MEDS: PATIENT'S OWN MEDICATION (NON-FORMULARY) (Fluticasone Propion/Salmeterol [Advair 250-50 Di IH SCH (21:54)
[2024-12-08 01:08] VITALS: BMI 24.6
[2024-12-08 07:15] LABS: HEMATOCRIT 30.1 % (35.4-49); MCH 25.1 pg (25.7-33.7); MCHC 29.9 g/dl (32.0-35.9); MEAN CELL VOLUME 84.1 fl (80-96); MEAN PLT VOLUME 8.3 fl (7.5-11.1); PLATELET COUNT 232 10^3/uL (134-434); RBC 3.59 M/mm3 (4.00-5.60); RDW 20.3 % (11.9-15.9); WHITE BLOOD COUNT 7.7 K/mm3 (4.0-10.0)
[2024-12-08 07:31] LABS: POTASSIUM 4.4 mmol/L (3.5-5.1)
[2024-12-08 07:39] LABS: ALBUMIN 2.3 g/dl (3.4-5.0)
[2024-12-08 07:43] LABS: CREATININE 2.6 mg/dL (0.55-1.3)
[2024-12-08 07:44] LABS: BILIRUBIN,TOTAL 0.6 mg/dL (0.2-1); TOT PROT 5.7 g/dl (6.4-8.2)
[2024-12-08] MEDS: FOLIC ACID 1 MG TABLET (FP) PO SCH (09:32)
[2024-12-08] MEDS: FUROSEMIDE 40 MG/4 ML INJECTABLE VIAL IVPUSH SCH (09:33)
[2024-12-08] MEDS: MONTELUKAST NA 10 MG TABLET PO SCH (09:33)
[2024-12-08 09:42] LABS: ANISOCYTOSIS 1+; MACROCYTOSIS 0; OVALOCYTE 0
[2024-12-08] MEDS ORDERED: FUROSEMIDE 40 MG TABLET (FP) PO SCH (10:00)
[2024-12-08] MEDS: ALBUTEROL SO4 2.5/IPRATROPIUM 0.5 INH SOL 3 ML VIAL.NEB. NEB SCH (12:37)
[2024-12-08 20:07] LABS: URINE APPEARANCE CLEAR; URINE BILIRUBIN NEGATIVE (NEGATIVE); URINE COLOR YELLOW; URINE GLUCOSE (UA) NEGATIVE (NEGATIVE); URINE KETONE NEGATIVE (NEGATIVE); URINE LEUK ESTERASE NEGATIVE (NEGATIVE); URINE NITRITE NEGATIVE (NEGATIVE); URINE PROTEIN TRACE (NEGATIVE); URINE UROBILINOGEN 0.2 mg/dL (0.2-1.0)
[2024-12-09 08:39] LABS: POTASSIUM 4.6 mmol/L (3.5-5.1)
[2024-12-09 08:50] LABS: CALCIUM 8.8 mg/dL (8.5-10.1)
[2024-12-09 08:52] LABS: BLOOD UREA NITROGEN 95.6 mg/dL (7-18)
[2024-12-09 08:53] LABS: ALBUMIN 2.4 g/dl (3.4-5.0)
[2024-12-09 08:56] LABS: CREATININE 2.6 mg/dL (0.55-1.3)
[2024-12-09 08:57] LABS: BILIRUBIN,TOTAL 0.6 mg/dL (0.2-1); TOT PROT 5.8 g/dl (6.4-8.2)
[2024-12-10 09:05] LABS: POTASSIUM 4.7 mmol/L (3.5-5.1)
[2024-12-10 09:10] LABS: CALCIUM 8.6 mg/dL (8.5-10.1)
[2024-12-10 09:11] LABS: ALBUMIN 2.6 g/dl (3.4-5.0)
[2024-12-10 09:13] LABS: BLOOD UREA NITROGEN 92.6 mg/dL (7-18)
[2024-12-10 09:15] LABS: CREATININE 2.5 mg/dL (0.55-1.3)
[2024-12-10 09:17] LABS: TOT PROT 5.9 g/dl (6.4-8.2)
[2024-12-10 09:20] LABS: BILIRUBIN,TOTAL 0.7 mg/dL (0.2-1)
[2024-12-11 08:59] LABS: POTASSIUM 4.8 mmol/L (3.5-5.1)
[2024-12-11 09:08] LABS: CALCIUM 8.2 mg/dL (8.5-10.1)
[2024-12-11 09:09] LABS: ALBUMIN 2.4 g/dl (3.4-5.0); BLOOD UREA NITROGEN 76.9 mg/dL (7-18)
[2024-12-11 09:11] LABS: TOT PROT 5.6 g/dl (6.4-8.2)
[2024-12-11 09:12] LABS: CREATININE 2.2 mg/dL (0.55-1.3)
[2024-12-11 09:14] LABS: BILIRUBIN,TOTAL 0.6 mg/dL (0.2-1)
[2024-12-11] MEDS: FLUTICASONE/UMECLIDIN/VILANTER(100-62.5-25 TRELEGY ELLIPTA) INAHLER IH SCH (13:41)
[2024-12-12 08:29] LABS: POTASSIUM 4.5 mmol/L (3.5-5.1)
[2024-12-12 08:31] LABS: ALBUMIN 2.5 g/dl (3.4-5.0); CALCIUM 8.4 mg/dL (8.5-10.1)
[2024-12-12 08:32] LABS: BLOOD UREA NITROGEN 61.7 mg/dL (7-18)
[2024-12-12 08:35] LABS: CREATININE 2.1 mg/dL (0.55-1.3)
[2024-12-12 08:36] LABS: BILIRUBIN,TOTAL 0.7 mg/dL (0.2-1); TOT PROT 5.8 g/dl (6.4-8.2)
[2024-12-12 15:13] VITALS: RESP 18
[2024-12-12] MEDS ORDERED: DOCUSATE SODIUM 100 MG CAPSULE (FP) PO PRN (23:14)
[2024-12-13] MEDS ORDERED: ALBUTEROL SO4 2.5/IPRATROPIUM 0.5 INH SOL 3 ML VIAL.NEB. NEB SCH (08:00)
[2024-12-13 08:55] LABS: BASO % 0.1 % (0-2.0); EOS % 2.9 % (0-4.5); HEMATOCRIT 33.9 % (35.4-49); HEMOGLOBIN 10.5 GM/dL (11.7-16.9); LYMPH % 6.6 % (8-40); MCH 26.2 pg (25.7-33.7); MCHC 30.9 g/dl (32.0-35.9); MEAN CELL VOLUME 84.9 fl (80-96); MONO % 7.7 % (3.8-10.2); NEUT % 82.7 % (42.8-82.8); PLATELET COUNT 316 10^3/uL (134-434); RBC 3.99 M/mm3 (4.00-5.60); RDW 21.1 % (11.9-15.9); WHITE BLOOD COUNT 9.2 K/mm3 (4.0-10.0)
[2024-12-13 09:14] LABS: POTASSIUM 4.7 mmol/L (3.5-5.1)
[2024-12-13 09:24] LABS: CALCIUM 8.6 mg/dL (8.5-10.1)
[2024-12-13 09:25] LABS: ALBUMIN 2.6 g/dl (3.4-5.0)
[2024-12-13 09:28] LABS: CREATININE 2.2 mg/dL (0.55-1.3)
[2024-12-13 09:29] LABS: BILIRUBIN,TOTAL 0.8 mg/dL (0.2-1)
[2024-12-13] MEDS: APIXABAN 2.5 MG TABLET PO SCH (10:07)
[2024-12-13] MEDS: FOLIC ACID 1 MG TABLET (FP) PO SCH (10:07)
[2024-12-13] MEDS: FUROSEMIDE 40 MG/4 ML INJECTABLE VIAL IVPUSH SCH (10:08)
[2024-12-13] MEDS: FLUTICASONE/UMECLIDIN/VILANTER(200-62.5-25 TRELEGY ELLIPTA) INAHLER IH SCH (10:15)
[2024-12-13 10:50] LABS: ANISOCYTOSIS 3+; MACROCYTOSIS 0; OVALOCYTE 2+
[2024-12-13] MEDS: MONTELUKAST NA 10 MG TABLET PO SCH (22:46)
[2024-12-14] MEDS: FUROSEMIDE 40 MG TABLET (FP) PO SCH (10:04)
[2024-12-14 14:40] VITALS: BP 122/63; PULSE 85; TEMP 98
== END 2024-12-14 16:00 | disposition home or self-care (01) | DRG 291 ==
LOC: JER 08:28 → JERBED 11:14 → J4S 19:03 → J6S 12-12 23:17
PROVIDERS: ADMIT Internal Medicine; ATTEND Internal Medicine
DX: I13.0 Hypertensive heart and chronic kidney disease with heart failure and stage 1 through stage 4 chronic kidney disease, or unspecified chronic kidney disease (principal); J18.9 Pneumonia, unspecified organism; I50.33 Acute on chronic diastolic (congestive) heart failure; J96.01 Acute respiratory failure with hypoxia; J44.1 Chronic obstructive pulmonary disease with (acute) exacerbation; N17.9 Acute kidney failure, unspecified; J90 Pleural effusion, not elsewhere classified; N39.0 Urinary tract infection, site not specified; J81.1 Chronic pulmonary edema; J44.0 Chronic obstructive pulmonary disease with (acute) lower respiratory infection; I48.91 Unspecified atrial fibrillation; I27.20 Pulmonary hypertension, unspecified; I25.10 Atherosclerotic heart disease of native coronary artery without angina pectoris; E78.5 Hyperlipidemia, unspecified; N18.9 Chronic kidney disease, unspecified; D50.9 Iron deficiency anemia, unspecified
CPT/HCPCS: 0241U-QW; 36415; 71045-TC-FY; 80048; 80053; 81003; 82803; 83880; 84484; 85025; 87086; 93005; 93010; 93306-TC; 94640; 94660; 97116-GP; 97161-GP; 99291

== ENCOUNTER 2024-12-25 08:31 | Inpatient (IN) | payer OTHER ==
[2024-12-25] MEDS ORDERED: ALBUTEROL SO4 2.5/IPRATROPIUM 0.5 INH SOL 3 ML VIAL.NEB. NEB ONE (08:39)
[2024-12-25] MEDS ORDERED: methylPREDNISolone NA SUCC 125 MG/2 ML VIAL ONE (08:46)
[2024-12-25] MEDS: ALBUTEROL SO4 2.5/IPRATROPIUM 0.5 INH SOL 3 ML VIAL.NEB. NEB ONE (09:06)
[2024-12-25] MEDS: methylPREDNISolone NA SUCC 125 MG/2 ML VIAL IVPB ONE (09:06)
[2024-12-25 09:18] LABS: HEMATOCRIT 33.1 % (35.4-49); HEMOGLOBIN 10.1 GM/dL (11.7-16.9); MCH 25.4 pg (25.7-33.7); MCHC 30.4 g/dl (32.0-35.9); MEAN CELL VOLUME 83.4 fl (80-96); MEAN PLT VOLUME 7.7 fl (7.5-11.1); PLATELET COUNT 295 10^3/uL (134-434); RBC 3.96 M/mm3 (4.00-5.60); RDW 21.8 % (11.9-15.9); WHITE BLOOD COUNT 27.1 K/mm3 (4.0-10.0)
[2024-12-25 09:24] LABS: VENOUS BASE EXCESS 5.1 mmol/L (-2-2); VENOUS O2 SATURATION 24.6 % (70-80); VENOUS PCO2 49.5 mmHg (38-52); VENOUS PH 7.408 (7.310-7.410)
[2024-12-25 09:44] LABS: CHLORIDE 97 mmol/L (98-107); POTASSIUM 3.5 mmol/L (3.5-5.1); SODIUM 132 mmol/L (136-145)
[2024-12-25 09:48] LABS: CALCIUM 8.7 mg/dL (8.5-10.1)
[2024-12-25 09:49] LABS: ALBUMIN 2.4 g/dl (3.4-5.0); ANION GAP 4 mmol/L (4-13); BLOOD UREA NITROGEN 40.6 mg/dL (7-18); CO2 31 mmol/L (21-32); GLUCOSE,RANDOM 154 mg/dL (74-106)
[2024-12-25 09:52] LABS: CREATININE 2.2 mg/dL (0.55-1.3); SGOT/AST 20 U/L (15-37); SGPT/ALT 33 U/L (13-61)
[2024-12-25 09:53] LABS: BILIRUBIN,TOTAL 0.9 mg/dL (0.2-1); TOT PROT 6.1 g/dl (6.4-8.2)
[2024-12-25 09:54] LABS: ALK PHOS 100 U/L (45-117)
[2024-12-25 10:52] LABS: ANISOCYTOSIS 2+; MACROCYTOSIS 0; OVALOCYTE 1+
[2024-12-25] MEDS ORDERED: CEFEPIME HCL/D5W 2 GM/50 ML BAG IVPB ONE (11:26)
[2024-12-25] MEDS ORDERED: VANCOMYCIN 1 GM PREMIX (F) 1 GM/200 ML BAG ONE (11:26)
[2024-12-25] MEDS: CEFEPIME HCL/D5W 2 GM/50 ML BAG IVPB ONE (11:32)
[2024-12-25] MEDS: VANCOMYCIN 1,000 MG in DEXTROSE 5%-WATER - 250 ML IVPB ONE (11:32)
[2024-12-25] MEDS ORDERED: ALBUTEROL SO4 2.5/IPRATROPIUM 0.5 INH SOL 3 ML VIAL.NEB. NEB PRN (22:20)
[2024-12-26 04:21] LABS: URINE APPEARANCE CLEAR; URINE BILIRUBIN NEGATIVE (NEGATIVE); URINE COLOR YELLOW; URINE GLUCOSE (UA) TRACE (NEGATIVE); URINE KETONE TRACE (NEGATIVE); URINE LEUK ESTERASE NEGATIVE (NEGATIVE); URINE NITRITE NEGATIVE (NEGATIVE); URINE PROTEIN TRACE (NEGATIVE); URINE UROBILINOGEN 0.2 mg/dL (0.2-1.0)
[2024-12-26] MEDS: EMPAGLIFLOZIN (JARDIANCE) 10 MG TABLET PO SCH (06:18)
[2024-12-26] MEDS: APIXABAN 2.5 MG TABLET PO SCH (10:17)
[2024-12-26] MEDS: amLODIPine BESYLATE 5 MG TABLET (FP) PO SCH (10:18)
[2024-12-26] MEDS: DOCUSATE SODIUM 100 MG CAPSULE (FP) PO SCH (10:18)
[2024-12-26] MEDS: LOSARTAN POTASSIUM 25 MG TABLET PO SCH (10:18)
[2024-12-26] MEDS: FLUTICASONE/UMECLIDIN/VILANTER(200-62.5-25 TRELEGY ELLIPTA) INAHLER IH SCH (10:19)
[2024-12-26 13:02] LABS: HEMATOCRIT 29.8 % (35.4-49); HEMOGLOBIN 9.3 GM/dL (11.7-16.9); MCH 25.7 pg (25.7-33.7); MCHC 31.2 g/dl (32.0-35.9); MEAN CELL VOLUME 82.3 fl (80-96); MEAN PLT VOLUME 7.7 fl (7.5-11.1); PLATELET COUNT 293 10^3/uL (134-434); RBC 3.62 M/mm3 (4.00-5.60); RDW 21.6 % (11.9-15.9); WHITE BLOOD COUNT 23.6 K/mm3 (4.0-10.0)
[2024-12-26 13:22] LABS: POTASSIUM 3.9 mmol/L (3.5-5.1)
[2024-12-26 13:24] LABS: BLOOD UREA NITROGEN 61.6 mg/dL (7-18); CALCIUM 8.5 mg/dL (8.5-10.1)
[2024-12-26 13:25] LABS: ALBUMIN 2.3 g/dl (3.4-5.0)
[2024-12-26 13:28] LABS: CREATININE 2.4 mg/dL (0.55-1.3)
[2024-12-26 13:29] LABS: BILIRUBIN,TOTAL 0.6 mg/dL (0.2-1); TOT PROT 6.1 g/dl (6.4-8.2)
[2024-12-26 13:50] LABS: ANISOCYTOSIS 0; MACROCYTOSIS 0; OVALOCYTE 1+
[2024-12-26] MEDS: FUROSEMIDE 40 MG TABLET (FP) PO ONE (14:52)
[2024-12-26] MEDS: CEFEPIME HCL/D5W 1 GM/50 ML BAG IVPB SCH (14:52)
[2024-12-26] MEDS: ALBUTEROL SO4 2.5/IPRATROPIUM 0.5 INH SOL 3 ML VIAL.NEB. NEB SCH (15:21)
[2024-12-26] MEDS: FUROSEMIDE 40 MG TABLET (FP) PO SCH (18:17)
[2024-12-26] MEDS: ROSUVASTATIN CA 5 MG TABLET PO SCH (21:52)
[2024-12-27] MEDS ORDERED: MELATONIN 5 MG TABLETS PO PRN (03:16)
[2024-12-27 09:27] LABS: HEMATOCRIT 30.2 % (35.4-49); HEMOGLOBIN 9.3 GM/dL (11.7-16.9); MCH 25.9 pg (25.7-33.7); MCHC 30.7 g/dl (32.0-35.9); MEAN CELL VOLUME 84.3 fl (80-96); MEAN PLT VOLUME 7.9 fl (7.5-11.1); PLATELET COUNT 310 10^3/uL (134-434); RBC 3.58 M/mm3 (4.00-5.60); RDW 21.3 % (11.9-15.9); WHITE BLOOD COUNT 19.1 K/mm3 (4.0-10.0)
[2024-12-27 09:32] LABS: POTASSIUM 4.1 mmol/L (3.5-5.1)
[2024-12-27 09:41] LABS: BLOOD UREA NITROGEN 73.2 mg/dL (7-18); CALCIUM 8.8 mg/dL (8.5-10.1)
[2024-12-27 09:42] LABS: ALBUMIN 2.4 g/dl (3.4-5.0)
[2024-12-27 09:45] LABS: CREATININE 2.6 mg/dL (0.55-1.3)
[2024-12-27 09:46] LABS: BILIRUBIN,TOTAL 0.6 mg/dL (0.2-1); TOT PROT 6.2 g/dl (6.4-8.2)
[2024-12-27] MEDS: FUROSEMIDE 40 MG TABLET (FP) PO SCH (10:42)
[2024-12-27] MEDS: MONTELUKAST NA 5 MG TAB.CHEW PO SCH (23:12)
[2024-12-28] MEDS: AZITHROMYCIN IVPB 500 MG/250 ML BAG IVPB ONE (00:05)
[2024-12-28] MEDS: methylPREDNISolone NA SUCC 40 MG/1 ML VIAL IVPUSH SCH (01:12)
[2024-12-28 08:02] LABS: HEMATOCRIT 29.2 % (35.4-49); HEMOGLOBIN 9.1 GM/dL (11.7-16.9); MEAN CELL VOLUME 83.9 fl (80-96); MEAN PLT VOLUME 7.8 fl (7.5-11.1); PLATELET COUNT 310 10^3/uL (134-434); RBC 3.48 M/mm3 (4.00-5.60); RDW 21.7 % (11.9-15.9); WHITE BLOOD COUNT 13.1 K/mm3 (4.0-10.0)
[2024-12-28 08:22] LABS: POTASSIUM 3.9 mmol/L (3.5-5.1)
[2024-12-28 08:26] LABS: ALBUMIN 2.3 g/dl (3.4-5.0); BLOOD UREA NITROGEN 77.8 mg/dL (7-18); CALCIUM 8.7 mg/dL (8.5-10.1)
[2024-12-28 08:30] LABS: BILIRUBIN,TOTAL 0.6 mg/dL (0.2-1); CREATININE 2.5 mg/dL (0.55-1.3); TOT PROT 6.2 g/dl (6.4-8.2)
[2024-12-28 09:11] LABS: ANISOCYTOSIS 1+; MACROCYTOSIS 1+
[2024-12-28] MEDS: AZITHROMYCIN IVPB 500 MG/250 ML BAG IVPB SCH (10:55)
[2024-12-28] MEDS: DOCUSATE SODIUM 100 MG CAPSULE (FP) PO PRN (12:14)
[2024-12-28] MEDS: CEFEPIME 1 GM in DEXTROSE 5%-WATER 100 ML IVPB SCH (19:57)
[2024-12-28] MEDS: ACETAMINOPHEN 325 MG TABLET (FP) PO PRN (20:09)
[2024-12-28] MEDS: MONTELUKAST NA 10 MG TABLET PO SCH (21:09)
[2024-12-29] MEDS: CEFEPIME HCL/D5W 1 GM/50 ML BAG IVPB SCH (10:40)
[2024-12-29] MEDS: VANCOMYCIN 1 GM PREMIX (F) 1,000 MG/200 ML BAG IVPB SCH (11:19)
[2024-12-29] MEDS: VANCOMYCIN/WATER FOR INJ (PEG) 1,000 MG/200 ML BAG IVPB SCH (19:39)
[2024-12-30 09:06] LABS: HEMATOCRIT 29.4 % (35.4-49); MCH 25.5 pg (25.7-33.7); MCHC 30.5 g/dl (32.0-35.9); MEAN CELL VOLUME 83.5 fl (80-96); MEAN PLT VOLUME 8.1 fl (7.5-11.1); PLATELET COUNT 334 10^3/uL (134-434); RBC 3.52 M/mm3 (4.00-5.60); RDW 21.2 % (11.9-15.9); WHITE BLOOD COUNT 16.6 K/mm3 (4.0-10.0)
[2024-12-30] MEDS: methylPREDNISolone NA SUCC 40 MG/1 ML VIAL IVPUSH SCH (09:18)
[2024-12-30 09:32] LABS: POTASSIUM 3.7 mmol/L (3.5-5.1)
[2024-12-30 09:39] LABS: ALBUMIN 2.5 g/dl (3.4-5.0); CALCIUM 8.8 mg/dL (8.5-10.1)
[2024-12-30 09:42] LABS: CREATININE 2.6 mg/dL (0.55-1.3)
[2024-12-30 09:43] LABS: BILIRUBIN,TOTAL 0.6 mg/dL (0.2-1); TOT PROT 6.4 g/dl (6.4-8.2)
[2024-12-30 10:51] LABS: ANISOCYTOSIS 0; MACROCYTOSIS 0; OVALOCYTE 1+
[2024-12-30] MEDS: CEFTRIAXONE 2 GM-D5W BAG 2 GM/50 ML BAG IVPB SCH (11:14)
[2024-12-30] MEDS: INSULIN (NOVOLOG) ASPART 100 UNITS/ML 10ML VIAL SQ ONE ×2 (13:27→15:46)
[2024-12-30] MEDS: INSULIN (NOVOLOG) ASPART 100 UNITS/ML 10ML VIAL SQ SCH (17:33)
[2024-12-31] MEDS ORDERED: INSULIN (LEVEMIR) 100 UNITS/ML UNITS SQ SCH (08:00)
[2024-12-31] MEDS ORDERED: INSULIN ASPART SLIDING SCALE (NOVOLOG) 1 VIAL SQ ONE ×2 (10:59→21:00)
[2024-12-31] MEDS: POLYETHYLENE GLYCOL (HEALTHYLAX) 3350 17 GM PACKET PO SCH (11:02)
[2024-12-31] MEDS ORDERED: INSULIN (LEVEMIR) 100 UNITS/ML UNITS SQ ONE (21:00)
[2024-12-31] MEDS: INSULIN (LEVEMIR) 100 UNITS/ML UNITS SQ SCH (21:28)
[2025-01-01] MEDS: ALBUTEROL SO4 2.5/IPRATROPIUM 0.5 INH SOL 3 ML VIAL.NEB. NEB PRN (11:28)
[2025-01-01] MEDS ORDERED: INSULIN ASPART SLIDING SCALE (NOVOLOG) 1 VIAL SQ ONE ×3 (14:07→21:00)
[2025-01-02 08:05] LABS: CHLORIDE 101 mmol/L (98-107); POTASSIUM 3.7 mmol/L (3.5-5.1); SODIUM 138 mmol/L (136-145)
[2025-01-02 08:15] LABS: ANION GAP 10 mmol/L (4-13); CALCIUM 8.7 mg/dL (8.5-10.1); CO2 28 mmol/L (21-32); SGPT/ALT 37 U/L (13-61)
[2025-01-02 08:16] LABS: ALBUMIN 2.3 g/dl (3.4-5.0); GLUCOSE,RANDOM 273 mg/dL (74-106)
[2025-01-02 08:17] LABS: BLOOD UREA NITROGEN 108.6 mg/dL (7-18)
[2025-01-02 08:19] LABS: CREATININE 2.6 mg/dL (0.55-1.3); SGOT/AST 14 U/L (15-37)
[2025-01-02 08:20] LABS: TOT PROT 5.5 g/dl (6.4-8.2)
[2025-01-02 08:21] LABS: BILIRUBIN,TOTAL 0.5 mg/dL (0.2-1)
[2025-01-02 08:23] LABS: ALK PHOS 102 U/L (45-117)
[2025-01-02] MEDS: predniSONE 20 MG TABLET (UD) PO SCH (09:56)
[2025-01-02] MEDS: ARTIFICIAL TEARS OPHTHALMIC DROPS OU PRN (14:45)
[2025-01-03] MEDS: FLUTICASONE/UMECLIDIN/VILANTER(200-62.5-25 TRELEGY ELLIPTA) INAHLER IH SCH (10:30)
[2025-01-03] MEDS ORDERED: INSULIN ASPART SLIDING SCALE (NOVOLOG) 1 VIAL SQ ONE (16:53)
[2025-01-03] MEDS: CEFUROXIME AXETIL 250 MG TABLET PO SCH (16:58)
[2025-01-04 12:07] VITALS: BMI 25.3
[2025-01-04] MEDS: predniSONE 20 MG TABLET (UD) PO SCH (13:51)
[2025-01-06 12:39] LABS: CHLORIDE 105 mmol/L (98-107); POTASSIUM 3.6 mmol/L (3.5-5.1); SODIUM 141 mmol/L (136-145)
[2025-01-06 12:40] LABS: CALCIUM 8.3 mg/dL (8.5-10.1)
[2025-01-06 12:41] LABS: ANION GAP 8 mmol/L (4-13); CO2 28 mmol/L (21-32); GLUCOSE,RANDOM 189 mg/dL (74-106); MAGNESIUM 2.3 mg/dL (1.8-2.4)
[2025-01-06 12:42] LABS: BLOOD UREA NITROGEN 104.2 mg/dL (7-18)
[2025-01-06 12:44] LABS: CREATININE 2.3 mg/dL (0.55-1.3)
[2025-01-06 13:47] LABS: HEMATOCRIT 31.1 % (35.4-49); HEMOGLOBIN 9.4 GM/dL (11.7-16.9); MCH 25.4 pg (25.7-33.7); MCHC 30.4 g/dl (32.0-35.9); MEAN CELL VOLUME 83.7 fl (80-96); MEAN PLT VOLUME 9.2 fl (7.5-11.1); PLATELET COUNT 285 10^3/uL (134-434); RBC 3.72 M/mm3 (4.00-5.60); RDW 21.2 % (11.9-15.9); WHITE BLOOD COUNT 21.8 K/mm3 (4.0-10.0)
[2025-01-06 14:43] LABS: ANISOCYTOSIS 2+; MACROCYTOSIS 0; OVALOCYTE 1+
[2025-01-07] MEDS: EMPAGLIFLOZIN (JARDIANCE) 10 MG TABLET PO SCH (06:31)
[2025-01-07 07:58] LABS: POTASSIUM 3.9 mmol/L (3.5-5.1)
[2025-01-07 08:01] LABS: CALCIUM 8.6 mg/dL (8.5-10.1)
[2025-01-07 08:02] LABS: BLOOD UREA NITROGEN 97.8 mg/dL (7-18)
[2025-01-07 08:05] LABS: CREATININE 2.4 mg/dL (0.55-1.3)
[2025-01-07] MEDS ORDERED: INSULIN ASPART SLIDING SCALE (NOVOLOG) 1 VIAL SQ ONE (21:01)
[2025-01-08 09:00] LABS: HEMATOCRIT 29.8 % (35.4-49); HEMOGLOBIN 9.3 GM/dL (11.7-16.9); MCHC 31.2 g/dl (32.0-35.9); MEAN CELL VOLUME 83.5 fl (80-96); PLATELET COUNT 252 10^3/uL (134-434); RBC 3.57 M/mm3 (4.00-5.60); RDW 21.4 % (11.9-15.9); WHITE BLOOD COUNT 23.3 K/mm3 (4.0-10.0)
[2025-01-08 09:41] LABS: POTASSIUM 3.9 mmol/L (3.5-5.1)
[2025-01-08 09:56] LABS: ALBUMIN 2.7 g/dl (3.4-5.0)
[2025-01-08 09:57] LABS: CALCIUM 8.5 mg/dL (8.5-10.1)
[2025-01-08 10:02] LABS: BILIRUBIN,TOTAL 0.6 mg/dL (0.2-1); CREATININE 2.2 mg/dL (0.55-1.3)
[2025-01-08 10:04] LABS: TOT PROT 5.8 g/dl (6.4-8.2)
[2025-01-08 10:14] LABS: ANISOCYTOSIS 2+; OVALOCYTE 1+
[2025-01-08] MEDS ORDERED: INSULIN ASPART SLIDING SCALE (NOVOLOG) 1 VIAL SQ SCH (12:44)
[2025-01-08] MEDS: INSULIN ASPART SLIDING SCALE (NOVOLOG) 1 VIAL SQ SCH (12:48)
[2025-01-08 14:42] LABS: HIV INTERPRETATION NEGATIVE (NEGATIVE)
[2025-01-09 10:26] VITALS: BP 100/62; PULSE 98; RESP 20; TEMP 97.5
[2025-01-09 11:25] LABS: HEMATOCRIT 29.6 % (35.4-49); MCH 25.5 pg (25.7-33.7); MCHC 30.6 g/dl (32.0-35.9); MEAN CELL VOLUME 83.3 fl (80-96); MEAN PLT VOLUME 9.1 fl (7.5-11.1); PLATELET COUNT 238 10^3/uL (134-434); RBC 3.55 M/mm3 (4.00-5.60); RDW 21.6 % (11.9-15.9); WHITE BLOOD COUNT 21.7 K/mm3 (4.0-10.0)
[2025-01-09 12:28] LABS: ANISOCYTOSIS 1+; MACROCYTOSIS 1+
== END 2025-01-09 13:56 | DRG 190 ==
LOC: JER 08:31 → JERBED 10:14 → J7W 17:03
PROVIDERS: ADMIT Internal Medicine; ATTEND Internal Medicine
DX: J44.0 Chronic obstructive pulmonary disease with (acute) lower respiratory infection (principal); J18.9 Pneumonia, unspecified organism; I13.0 Hypertensive heart and chronic kidney disease with heart failure and stage 1 through stage 4 chronic kidney disease, or unspecified chronic kidney disease; I50.32 Chronic diastolic (congestive) heart failure; I48.91 Unspecified atrial fibrillation; J44.1 Chronic obstructive pulmonary disease with (acute) exacerbation; E78.5 Hyperlipidemia, unspecified; I25.10 Atherosclerotic heart disease of native coronary artery without angina pectoris; M05.9 Rheumatoid arthritis with rheumatoid factor, unspecified; R09.02 Hypoxemia; D72.829 Elevated white blood cell count, unspecified; N40.0 Benign prostatic hyperplasia without lower urinary tract symptoms; W18.30XA Fall on same level, unspecified, initial encounter; I27.20 Pulmonary hypertension, unspecified; D50.9 Iron deficiency anemia, unspecified; N18.9 Chronic kidney disease, unspecified; Y92.098 Other place in other non-institutional residence as the place of occurrence of the external cause; Y99.9 Unspecified external cause status; Z99.81 Dependence on supplemental oxygen; Z88.0 Allergy status to penicillin
CPT/HCPCS: 0241U-QW; 36415; 71045-TC-FY; 71046-TC-FY; 71250-TC; 80048; 80053; 81003; 82803; 82962; 83735; 83880; 84484; 85025; 86480; 86704; 86705; 86803; 87040; 87070; 87077; 87205; 87305; 87340; 87389; 87517; 87635; 87899; 93005; 93010; 94640; 97116-GP; 97161-GP; 99285-25; G0480

== ENCOUNTER 2025-02-28 10:33 | Inpatient (IN) | payer OTHER ==
[2025-02-28 11:27] LABS: HEMATOCRIT 33.6 % (40.1-51.0); HEMOGLOBIN 9.6 g/dL (13.7-17.5); MCHC 28.6 g/dl (32.3-36.5); MEAN CELL VOLUME 86.8 fl (79.0-92.2); MEAN PLT VOLUME 10.8 fl (9.4-12.4); PLATELET COUNT 448 x10^3/uL (163-337); RDW 19.9 % (12.6-16.6)
[2025-02-28 11:27] LABS: VENOUS O2 SATURATION 65.4 % (70-80); VENOUS PCO2 50.4 mmHg (38-52); VENOUS PH 7.244 (7.310-7.410)
[2025-02-28 11:37] LABS: INR 2.86 (0.83-1.09); PROTHROMBIN TIME (PATIENT) 31.2 SEC (9.7-13.0)
[2025-02-28 11:39] LABS: ACTIVATED PTT 30.6 SECONDS (25.2-36.5)
[2025-02-28 11:52] LABS: CHLORIDE 104 mmol/L (98-107); SODIUM 138 mmol/L (136-145)
[2025-02-28 11:54] LABS: ALBUMIN 2.6 g/dl (3.4-5.0); ANION GAP 11 mmol/L (4-13); CALCIUM 8.4 mg/dL (8.5-10.1); CO2 24 mmol/L (21-32); GLUCOSE,RANDOM 206 mg/dL (74-106); MAGNESIUM 2.9 mg/dL (1.8-2.4)
[2025-02-28 11:57] LABS: CREATININE 3.6 mg/dL (0.55-1.3); PHOSPHOROUS 7.8 mg/dL (2.5-4.9); SGOT/AST 79 U/L (15-37); SGPT/ALT 96 U/L (13-61)
[2025-02-28 11:59] LABS: BILIRUBIN,TOTAL 1.2 mg/dL (0.2-1); TOT PROT 6.4 g/dl (6.4-8.2)
[2025-02-28 12:00] LABS: ALK PHOS 200 U/L (45-117)
[2025-02-28 12:02] LABS: N-TERMINAL BNP 15857.8 pg/ml (5-450)
[2025-02-28 12:26] LABS: BLOOD UREA NITROGEN 135.1 mg/dL (7-18)
[2025-02-28 12:31] LABS: BILIRUBIN,DIRECT 0.6 mg/dL (0.0-0.2)
[2025-02-28] MEDS: MEROPENEM 1 GM in DEXTROSE 5%-WATER 100 ML IVPB ONE (13:57)
[2025-02-28] MEDS: MEROPENEM 500 MG in DEXTROSE 5%-WATER 100 ML IVPB ONE (14:10)
[2025-02-28] MEDS: FUROSEMIDE 40 MG/4 ML INJECTABLE VIAL IVPUSH ONE (14:10)
[2025-02-28] MEDS: VANCOMYCIN 1,000 MG in DEXTROSE 5%-WATER - 250 ML IVPB ONE (14:40)
[2025-02-28] MEDS ORDERED: FUROSEMIDE 40 MG/4 ML INJECTABLE VIAL ONE (15:45)
[2025-02-28] MEDS ORDERED: VANCOMYCIN 1 GM PREMIX (F) 1 GM/200 ML BAG ONE (15:46)
[2025-02-28] MEDS ORDERED: MEROPENEM-0.9% SODIUM CHLORIDE 1 GM/50 ML BAG IVPB ONE (15:46)
[2025-02-28] MEDS ORDERED: DOCUSATE SODIUM 100 MG CAPSULE (FP) PO PRN (15:53)
[2025-02-28] MEDS ORDERED: ACETAMINOPHEN 325 MG TABLET (FP) PO PRN (15:53)
[2025-02-28] MEDS ORDERED: ARTIFICIAL TEARS OPHTHALMIC DROPS OU PRN (15:53)
[2025-02-28 16:43] LABS: CHLORIDE 104 mmol/L (98-107); POTASSIUM 5.1 mmol/L (3.5-5.1); SODIUM 140 mmol/L (136-145)
[2025-02-28 16:45] LABS: ALBUMIN 2.5 g/dl (3.4-5.0); ANION GAP 10 mmol/L (4-13); CALCIUM 8.4 mg/dL (8.5-10.1); CO2 26 mmol/L (21-32); GLUCOSE,RANDOM 184 mg/dL (74-106)
[2025-02-28 16:48] LABS: SGOT/AST 56 U/L (15-37); SGPT/ALT 90 U/L (13-61)
[2025-02-28 16:49] LABS: CREATININE 3.7 mg/dL (0.55-1.3)
[2025-02-28 16:50] LABS: BILIRUBIN,TOTAL 0.9 mg/dL (0.2-1)
[2025-02-28 16:51] LABS: ALK PHOS 198 U/L (45-117)
[2025-02-28 16:54] LABS: BLOOD UREA NITROGEN 137.2 mg/dL (7-18)
[2025-02-28] MEDS: VANCOMYCIN 1 GM PREMIX (F) 1 GM/200 ML BAG IVPB SCH (19:30)
[2025-02-28] MEDS: MEROPENEM 500 MG in DEXTROSE 5%-WATER 100 ML IVPB SCH (19:30)
[2025-02-28] MEDS: ALBUTEROL SO4 2.5/IPRATROPIUM 0.5 INH SOL 3 ML VIAL.NEB. NEB PRN (21:20)
[2025-02-28] MEDS: APIXABAN 2.5 MG TABLET PO SCH (22:24)
[2025-03-01] MEDS ORDERED: MEROPENEM 500 MG in DEXTROSE 5%-WATER 100 ML IVPB SCH (02:00)
[2025-03-01] MEDS: FUROSEMIDE 40 MG/4 ML INJECTABLE VIAL IVPUSH SCH (06:30)
[2025-03-01 06:41] LABS: HEMATOCRIT 34.3 % (40.1-51.0); HEMOGLOBIN 9.5 g/dL (13.7-17.5); MCHC 27.7 g/dl (32.3-36.5); MEAN CELL VOLUME 88.4 fl (79.0-92.2); MEAN PLT VOLUME 10.7 fl (9.4-12.4); PLATELET COUNT 417 x10^3/uL (163-337)
[2025-03-01 07:02] LABS: CHLORIDE 104 mmol/L (98-107); POTASSIUM 5.2 mmol/L (3.5-5.1); SODIUM 139 mmol/L (136-145)
[2025-03-01 07:20] LABS: CALCIUM 7.9 mg/dL (8.5-10.1)
[2025-03-01 07:21] LABS: ALBUMIN 2.5 g/dl (3.4-5.0); ANION GAP 11 mmol/L (4-13); CO2 24 mmol/L (21-32); GLUCOSE,RANDOM 123 mg/dL (74-106)
[2025-03-01 07:24] LABS: CREATININE 3.6 mg/dL (0.55-1.3); SGOT/AST 42 U/L (15-37); SGPT/ALT 82 U/L (13-61)
[2025-03-01 07:25] LABS: BILIRUBIN,TOTAL 0.9 mg/dL (0.2-1); TOT PROT 6.1 g/dl (6.4-8.2)
[2025-03-01 07:27] LABS: ALK PHOS 181 U/L (45-117)
[2025-03-01] MEDS ORDERED: FUROSEMIDE 40 MG/4 ML INJECTABLE VIAL IVPUSH SCH (10:00)
[2025-03-01] MEDS: FOLIC ACID 1 MG TABLET (FP) PO SCH (10:42)
[2025-03-01] MEDS: predniSONE 5 MG TABLET (UD) PO SCH (10:42)
[2025-03-01] MEDS: ROSUVASTATIN CA 5 MG TABLET PO SCH (10:42)
[2025-03-01] MEDS ORDERED: VANCOMYCIN 1 GM PREMIX (F) 1 GM/200 ML BAG IVPB SCH (14:00)
[2025-03-01] MEDS: FLUTICASONE/UMECLIDIN/VILANTER(200-62.5-25 TRELEGY ELLIPTA) INAHLER IH SCH (16:03)
[2025-03-01] MEDS: SODIUM ZIRCONIUM CYCLOSILICATE (LOKELMA) 5 GM PACKET PO SCH (16:57)
[2025-03-02 07:45] LABS: CHLORIDE 101 mmol/L (98-107); POTASSIUM 4.9 mmol/L (3.5-5.1); SODIUM 137 mmol/L (136-145)
[2025-03-02 07:48] LABS: ALBUMIN 2.5 g/dl (3.4-5.0); ANION GAP 8 mmol/L (4-13); CALCIUM 8.4 mg/dL (8.5-10.1); CO2 28 mmol/L (21-32)
[2025-03-02 07:49] LABS: BLOOD UREA NITROGEN 130.2 mg/dL (7-18); GLUCOSE,RANDOM 168 mg/dL (74-106)
[2025-03-02 07:51] LABS: SGPT/ALT 64 U/L (13-61)
[2025-03-02 07:52] LABS: CREATININE 3.5 mg/dL (0.55-1.3); SGOT/AST 22 U/L (15-37)
[2025-03-02 07:53] LABS: BILIRUBIN,TOTAL 0.7 mg/dL (0.2-1); TOT PROT 5.8 g/dl (6.4-8.2)
[2025-03-02 07:54] LABS: ALK PHOS 161 U/L (45-117)
[2025-03-03 07:38] LABS: CHLORIDE 101 mmol/L (98-107); POTASSIUM 4.9 mmol/L (3.5-5.1); SODIUM 137 mmol/L (136-145)
[2025-03-03 07:53] LABS: ALBUMIN 2.4 g/dl (3.4-5.0); CALCIUM 7.9 mg/dL (8.5-10.1)
[2025-03-03 07:54] LABS: ANION GAP 9 mmol/L (4-13); CO2 28 mmol/L (21-32); GLUCOSE,RANDOM 177 mg/dL (74-106)
[2025-03-03 07:56] LABS: CREATININE 3.3 mg/dL (0.55-1.3); SGOT/AST 40 U/L (15-37); SGPT/ALT 71 U/L (13-61)
[2025-03-03 07:57] LABS: TOT PROT 5.7 g/dl (6.4-8.2)
[2025-03-03 08:00] LABS: ALK PHOS 192 U/L (45-117); BILIRUBIN,TOTAL 0.8 mg/dL (0.2-1); BLOOD UREA NITROGEN 118.5 mg/dL (7-18)
[2025-03-03 08:01] LABS: HEMATOCRIT 30.5 % (40.1-51.0); HEMOGLOBIN 8.7 g/dL (13.7-17.5); MCHC 28.5 g/dl (32.3-36.5); MEAN CELL VOLUME 89.4 fl (79.0-92.2); MEAN PLT VOLUME 10.6 fl (9.4-12.4); PLATELET COUNT 310 x10^3/uL (163-337)
[2025-03-03] MEDS ORDERED: ARTIFICIAL TEARS OPHTHALMIC DROPS OU PRN (15:39)
[2025-03-03] MEDS ORDERED: DOCUSATE SODIUM 100 MG CAPSULE (FP) PO PRN (15:39)
[2025-03-03] MEDS ORDERED: ACETAMINOPHEN 325 MG TABLET (FP) PO PRN (15:39)
[2025-03-03] MEDS: APIXABAN 2.5 MG TABLET PO SCH (21:21)
[2025-03-04] MEDS: FUROSEMIDE 40 MG/4 ML INJECTABLE VIAL IVPUSH SCH (05:36)
[2025-03-04 07:54] LABS: CHLORIDE 102 mmol/L (98-107); POTASSIUM 5.3 mmol/L (3.5-5.1); SODIUM 137 mmol/L (136-145)
[2025-03-04 08:02] LABS: CALCIUM 8.3 mg/dL (8.5-10.1)
[2025-03-04 08:03] LABS: ALBUMIN 2.4 g/dl (3.4-5.0); ANION GAP 5 mmol/L (4-13); BLOOD UREA NITROGEN 116.2 mg/dL (7-18); CO2 30 mmol/L (21-32); GLUCOSE,RANDOM 191 mg/dL (74-106)
[2025-03-04 08:06] LABS: CREATININE 2.8 mg/dL (0.55-1.3); SGOT/AST 49 U/L (15-37); SGPT/ALT 80 U/L (13-61)
[2025-03-04 08:07] LABS: BILIRUBIN,TOTAL 0.7 mg/dL (0.2-1); TOT PROT 5.6 g/dl (6.4-8.2)
[2025-03-04 08:08] LABS: ALK PHOS 197 U/L (45-117)
[2025-03-04] MEDS ORDERED: predniSONE 5 MG TABLET (UD) PO SCH (10:00)
[2025-03-04] MEDS: FOLIC ACID 1 MG TABLET (FP) PO SCH (10:45)
[2025-03-04] MEDS: predniSONE 5 MG TABLET (UD) PO SCH (10:47)
[2025-03-04] MEDS: ROSUVASTATIN CA 5 MG TABLET PO SCH (10:48)
[2025-03-04] MEDS: FLUTICASONE/UMECLIDIN/VILANTER(200-62.5-25 TRELEGY ELLIPTA) INAHLER IH SCH (10:49)
[2025-03-04] MEDS: SODIUM ZIRCONIUM CYCLOSILICATE (LOKELMA) 5 GM PACKET PO SCH (10:50)
[2025-03-05] MEDS: predniSONE 1 MG TABLET (FP) PO SCH (09:53)
[2025-03-05 12:23] LABS: POTASSIUM 4.7 mmol/L (3.5-5.1)
[2025-03-05 12:25] LABS: ALBUMIN 2.4 g/dl (3.4-5.0); CALCIUM 8.1 mg/dL (8.5-10.1)
[2025-03-05 12:28] LABS: CREATININE 2.7 mg/dL (0.55-1.3)
[2025-03-05 12:30] LABS: BILIRUBIN,TOTAL 0.7 mg/dL (0.2-1); TOT PROT 5.5 g/dl (6.4-8.2)
[2025-03-05] MEDS: ALBUTEROL SO4 2.5/IPRATROPIUM 0.5 INH SOL 3 ML VIAL.NEB. NEB PRN (16:16)
[2025-03-07 06:26] LABS: BLOOD UREA NITROGEN 86.9 mg/dL (7-18); CALCIUM 7.8 mg/dL (8.5-10.1); CREATININE 2.1 mg/dL (0.55-1.3); POTASSIUM 4.5 mmol/L (3.5-5.1)
[2025-03-07 08:26] LABS: ABSOLUTE IMMATURE GRANULOCYTES 0.12 x10^3/uL (0.0-0.031); BASOPHILS # 0.01 x10^3/uL (0.01-0.08); EOSINOPHIL % 1.6 % (0.8-7.0); EOSINOPHILS # 0.28 x10^3/uL (0.04-0.54); HEMATOCRIT 28.2 % (40.1-51.0); HEMOGLOBIN 7.8 g/dL (13.7-17.5); MCHC 27.7 g/dl (32.3-36.5); MEAN CELL VOLUME 88.1 fl (79.0-92.2); MEAN PLT VOLUME 10.5 fl (9.4-12.4); MONOCYTE # 0.64 x10^3/uL (0.30-0.82); MONOCYTE % 3.7 % (5.3-12.2); PLATELET COUNT 204 x10^3/uL (163-337)
[2025-03-07 09:04] LABS: POTASSIUM 4.1 mmol/L (3.5-5.1)
[2025-03-07 09:08] LABS: ALBUMIN 2.3 g/dl (3.4-5.0); BLOOD UREA NITROGEN 85.3 mg/dL (7-18); CALCIUM 7.9 mg/dL (8.5-10.1)
[2025-03-07 09:12] LABS: CREATININE 2.2 mg/dL (0.55-1.3)
[2025-03-07 09:14] LABS: BILIRUBIN,TOTAL 0.7 mg/dL (0.2-1); TOT PROT 5.4 g/dl (6.4-8.2)
[2025-03-07] MEDS: SODIUM ZIRCONIUM CYCLOSILICATE (LOKELMA) 5 GM PACKET PO SCH (10:13)
[2025-03-07] MEDS: TORSEMIDE 20 MG TABLET (FP) PO SCH (13:56)
[2025-03-08 07:50] LABS: HEMATOCRIT 28.7 % (40.1-51.0); HEMOGLOBIN 7.9 g/dL (13.7-17.5); MCHC 27.5 g/dl (32.3-36.5); MEAN CELL VOLUME 88.3 fl (79.0-92.2); MEAN PLT VOLUME 11.2 fl (9.4-12.4); PLATELET COUNT 191 x10^3/uL (163-337); RDW 19.9 % (12.6-16.6)
[2025-03-08 08:11] LABS: ALBUMIN 2.2 g/dl (3.4-5.0); BLOOD UREA NITROGEN 75.7 mg/dL (7-18)
[2025-03-08 08:14] LABS: CREATININE 2.2 mg/dL (0.55-1.3)
[2025-03-08 08:15] LABS: BILIRUBIN,TOTAL 0.7 mg/dL (0.2-1)
[2025-03-08 08:16] LABS: TOT PROT 5.2 g/dl (6.4-8.2)
[2025-03-09 07:42] LABS: HEMATOCRIT 27.4 % (40.1-51.0); HEMOGLOBIN 7.6 g/dL (13.7-17.5); MCHC 27.7 g/dl (32.3-36.5); MEAN CELL VOLUME 87.8 fl (79.0-92.2); MEAN PLT VOLUME 11.4 fl (9.4-12.4); PLATELET COUNT 167 x10^3/uL (163-337); RDW 20.1 % (12.6-16.6)
[2025-03-09 08:02] LABS: POTASSIUM 3.9 mmol/L (3.5-5.1)
[2025-03-09 08:04] LABS: ALBUMIN 2.3 g/dl (3.4-5.0)
[2025-03-09 08:08] LABS: CREATININE 2.1 mg/dL (0.55-1.3)
[2025-03-09 08:09] LABS: BILIRUBIN,TOTAL 0.6 mg/dL (0.2-1); TOT PROT 5.3 g/dl (6.4-8.2)
[2025-03-09] MEDS: predniSONE 1 MG TABLET (FP) PO SCH (09:18)
[2025-03-09] MEDS: FUROSEMIDE 40 MG/4 ML INJECTABLE VIAL IVPUSH ONE (19:37)
[2025-03-09] MEDS: MELATONIN 5 MG TABLETS PO ONE (22:31)
[2025-03-10 09:00] LABS: HEMOGLOBIN 9.3 g/dL (13.7-17.5); MCHC 28.2 g/dl (32.3-36.5); MEAN CELL VOLUME 88.2 fl (79.0-92.2); MEAN PLT VOLUME 11.6 fl (9.4-12.4); PLATELET COUNT 178 x10^3/uL (163-337); RDW 19.6 % (12.6-16.6)
[2025-03-10 09:30] LABS: POTASSIUM 4.4 mmol/L (3.5-5.1)
[2025-03-10 09:32] LABS: BLOOD UREA NITROGEN 71.6 mg/dL (7-18); CALCIUM 8.8 mg/dL (8.5-10.1)
[2025-03-10 09:33] LABS: ALBUMIN 2.6 g/dl (3.4-5.0)
[2025-03-10 09:36] LABS: CREATININE 2.1 mg/dL (0.55-1.3)
[2025-03-10 09:37] LABS: BILIRUBIN,TOTAL 1.1 mg/dL (0.2-1)
[2025-03-10 09:38] LABS: TOT PROT 5.8 g/dl (6.4-8.2)
[2025-03-10] MEDS: FUROSEMIDE 40 MG/4 ML INJECTABLE VIAL IVPUSH ONE ×2 (11:32→14:55)
[2025-03-11] MEDS: methylPREDNISolone NA SUCC 125 MG/2 ML VIAL IVPUSH ONE (07:58)
[2025-03-11 09:14] LABS: ALLENS TEST POSITIVE; ARTERIAL BLD GAS O2 SATURATION 98.8 % (95-98); ARTERIAL BLOOD GAS BASE EXCESS 1.8 mmol/L (-2-2); ARTERIAL BLOOD GAS PO2 159.7 mmHg (80-100)
[2025-03-11 09:15] LABS: VENT MODE AVAPS; VENT RATE 16
[2025-03-11] MEDS: FUROSEMIDE 40 MG/4 ML INJECTABLE VIAL IVPUSH ONE ×4 (10:24→22:11)
[2025-03-11] MEDS: LEVALBUTEROL HCL 0.63 MG/3 ML VIAL.NEB. IH SCH (10:26)
[2025-03-11] MEDS: FUROSEMIDE 40 MG/4 ML INJECTABLE VIAL IVPUSH SCH (14:02)
[2025-03-11 16:15] VITALS: BMI 25.8
[2025-03-12 08:15] LABS: POTASSIUM 5.5 mmol/L (3.5-5.1)
[2025-03-12 08:27] LABS: HEMOGLOBIN 8.6 g/dL (13.7-17.5); MCHC 27.7 g/dl (32.3-36.5); MEAN CELL VOLUME 90.1 fl (79.0-92.2); MEAN PLT VOLUME 11.3 fl (9.4-12.4); PLATELET COUNT 143 x10^3/uL (163-337); RDW 19.4 % (12.6-16.6)
[2025-03-12 08:29] LABS: ALBUMIN 2.4 g/dl (3.4-5.0); BLOOD UREA NITROGEN 93.1 mg/dL (7-18); CALCIUM 8.8 mg/dL (8.5-10.1)
[2025-03-12 08:31] LABS: CREATININE 2.6 mg/dL (0.55-1.3)
[2025-03-12 08:33] LABS: BILIRUBIN,TOTAL 0.7 mg/dL (0.2-1); TOT PROT 5.5 g/dl (6.4-8.2)
[2025-03-12] MEDS: predniSONE 5 MG TABLET (UD) PO SCH (10:30)
[2025-03-12] MEDS ORDERED: morphine CARPU-JECT 2 MG/1 ML DISP.SYRIN IVPUSH PRN (12:02)
[2025-03-12] MEDS: FUROSEMIDE 40 MG/4 ML INJECTABLE VIAL IVPUSH SCH (13:57)
[2025-03-12 21:19] VITALS: RESP 19
[2025-03-13 06:55] VITALS: BP 131/71; PULSE 66; TEMP 97.7
[2025-03-13] MEDS: MORPHINE SULFATE/0.9% NACL/PF 100 MG/100 ML BAG IVPB SCH (10:24)
[2025-03-13] MEDS: ALBUTEROL SO4 0.083% IH SOL 2.5 MG/3 ML VIAL.NEB. NEB SCH (11:35)
== END 2025-03-13 20:50 | disposition expired | DRG 291 ==
LOC: JER 10:33 → JERBED 12:57 → J4S 19:55 → J8W 03-03 15:35
PROVIDERS: ADMIT Internal Medicine; ATTEND Internal Medicine
DX: I13.0 Hypertensive heart and chronic kidney disease with heart failure and stage 1 through stage 4 chronic kidney disease, or unspecified chronic kidney disease (principal); I50.33 Acute on chronic diastolic (congestive) heart failure; N17.9 Acute kidney failure, unspecified; J44.9 Chronic obstructive pulmonary disease, unspecified; I48.91 Unspecified atrial fibrillation; Z79.01 Long term (current) use of anticoagulants; N18.9 Chronic kidney disease, unspecified; I25.10 Atherosclerotic heart disease of native coronary artery without angina pectoris; L89.306 Pressure-induced deep tissue damage of unspecified buttock; M06.9 Rheumatoid arthritis, unspecified; Z99.81 Dependence on supplemental oxygen; N40.0 Benign prostatic hyperplasia without lower urinary tract symptoms
CPT/HCPCS: 0241U-QW; 36415; 36430; 36600; 70450-TC; 71045-TC-FY; 71250-TC; 72125-TC; 74176-TC; 74230-TC-FY; 76705-TC; 76775-TC; 80048; 80053; 82140; 82248; 82272; 82550; 82803; 82962; 83690; 83735; 83880; 84100; 84443; 84484; 85025; 85027; 85610; 85730; 86850; 86900; 86901; 86922; 87040; 92611-GN; 93005; 93010; 94640; 94660; 97116-GP; 97161-GP; 99285-25; P9058